=== PATIENT | female | born 1965 | race Caucasian/White ===

== ENCOUNTER → 2017-08-17 08:07 | Outpatient (CLI) | payer SELFPAY ==
[2017-08-17 10:01] LABS: Cholesterol 167 mg/dL (200); Glucose 76 mg/dL (74-106); High Density Lipoprotein 53 mg/dL; Triglycerides 119 mg/dL; Very Low Density Lipoprotein 24 mg/dL (5-40)
== END ==
PROVIDERS: Family Provider Internal Medicine; PCP Internal Medicine; Visit Provider Internal Medicine
DX: Z02.89 Encounter for other administrative examinations (principal)
CPT/HCPCS: 36415; 80061; 82947

== ENCOUNTER → 2017-09-22 06:11 | Outpatient (CLI) | payer SELFPAY ==
[2017-09-22 08:17] LABS: Cholesterol 171 mg/dL (200); Glucose 76 mg/dL (74-106); High Density Lipoprotein 52 mg/dL; Triglycerides 109 mg/dL; Very Low Density Lipoprotein 22 mg/dL (5-40)
== END ==
PROVIDERS: Family Provider Internal Medicine; PCP Internal Medicine; Visit Provider Internal Medicine
DX: Z02.89 Encounter for other administrative examinations (principal)
CPT/HCPCS: 36415; 80061; 82947

== ENCOUNTER → 2018-08-14 10:54 | Outpatient (CLI) | payer BC, SELFPAY ==
--- NOTE | 2018-08-14 11:04 | BD_ITS ---
STUDY: DUAL ENERGY X-RAY ABSORPTIOMETRY / DXA REASON FOR EXAM: Female, 52 years old. The patient's postmenopausal. Loss of height. TECHNIQUE: Bone Mineral Density (BMD) measurements of lumbar spine and bilateral hips were obtained. COMPARISON: None. FINDINGS: Lumbar Spine (L1-L4): g/cm2 (0.913) / T-score (-2.2) / Z-score (-1.8) Findings are suggestive of osteopenia with a moderate fracture risk. Increased thoracic kyphosis. Left Femur Total: g/cm2 (0.808) / T-score (-1.6) / Z-score (-1.1) Left Femoral Neck: g/cm2 (0.836) / T-score (-1.5) / Z-score (-0.6) Right Femur Total: g/cm2 (0.846) / T-score (-1.3) / Z-score (-0.8) Right Femoral Neck: g/cm2 (0.864) / T-score (-1.3) / Z-score (-0.4) BD/Dexa Bone Density Study IMPRESSION: The patient is considered osteopenic as outlined below according to World [employer]avo Organization (WHO) criteria with a moderate fracture risk. Reference Information: The T-score is the number of standard deviations above or below the standard which is normal for young adults at their peak bone mineral density. The World Health Organization (WHO) interprets the T-scores as follows: Above -1 Normal bone density Between -1 and -2.5 Osteopenia Equal to / or below -2.5 Osteoporosis As a practical clinical guideline, osteopenia may be graded as follows: Mild -1 through -1.5 Moderate -1.6 through -2.0 Severe -2.1 through -2.4 The Z-score is the number of standard deviations above or below age-matched controls. A Z-score of less than -1.5 would be considered abnormal. References: 1. NIH Osteoporosis and Related Bone Diseases http://www.osteo.org 2. International Society for Clinical Densitometry http://www.iscd.org 3. National Osteoporosis Foundation http://www.nof.org Electronically Signed: Conner Becker MD at 12:44 EST , Service support ,
== END ==
PROVIDERS: Family Provider Internal Medicine; PCP Internal Medicine; Referring Provider Internal Medicine; Visit Provider Internal Medicine
DX: R74.8 Abnormal levels of other serum enzymes (principal)
CPT/HCPCS: 77080

== ENCOUNTER → 2020-04-22 08:55 | Outpatient (CLI) | payer BC, SELFPAY ==
[2020-04-22 08:24] VITALS: BMI 24.3
[2020-04-22 12:50] LABS: Absolute Lymphocyte Count 1.34 X10^3/uL (0.83-4.51); Absolute Neutrophil Count 2.9 X10^3/uL (2.0-7.7); Basophil# 0.04 X10^3/uL; Basophil% 0.8 % (0-1); Eosinophil# 0.04 X10^3/uL; Eosinophils% 0.8 % (0-5); Hematocrit 42.3 % (37-47); Hemoglobin 13.3 g/dL (12.0-15.0); Lymphocyte # 1.34 X10^3/ul (4.0); Lymphocyte % 27.8 % (19-41); Mean Corp Hgb Conc 31.4 g/dL (32-36); Mean Corpuscular Hgb 27.6 pg (27.0-32.0); Mean Corpuscular Volume 87.8 fL (81-99); Mean Platelet Vol. 11.1 fl (6.2-12.0); Monocyte# 0.48 X10^3/uL; NRBC Flagged by Analyzer 0 % (0-5); Neutrophil # 2.91 X10^3/uL (2.7-7.7); Neutrophil % 60.4 % (47-70); Platelet Count 293 K/mm3 (150-450); RBC Distribution Width CV 13.6 % (11.6-14.6); RBC Distribution Width SD 44.1 fl (35.1-43.9); Red Blood Count 4.82 M/mm3 (4.2-5.4); White Blood Count 4.8 K/mm3 (4.4-11.0)
[2020-04-22 12:53] LABS: ALB/GLOB Ratio 1.1 RATIO (0.9-2.4); AST(SGOT) 23 U/L (15-37); Alanine Aminotransfer ALT/SGPT 23 U/L (13-56); Alkaline Phosphatase 158 U/L (45-117); Anion Gap 5 (5-15); BUN 9 mg/dL (7-18); Calcium,Total 9.2 mg/dL (8.5-10.1); Chloride 107 mmol/L (98-107); Cholesterol 159 mg/dL (200); Creatinine, Serum 0.75 mg/dL (0.55-1.02); EST Glomerular Filtration Rate 86 mL/min (>60); Est Glom Filt Rate - Afr Amer 104 mL/min (>60); Globulin 3.7 g/dL (2.2-4.2); Glucose 73 mg/dL (74-106); High Density Lipoprotein 44 mg/dL; Potassium 4.2 mmol/L (3.5-5.1); Protein, Total 7.7 g/dL (6.4-8.2); Sodium Level 141 mmol/L (136-145); Triglycerides 174 mg/dL; Very Low Density Lipoprotein 35 mg/dL (5-40)
== END ==
PROVIDERS: PCP Internal Medicine; Referring Provider Internal Medicine; Visit Provider Internal Medicine
DX: Z00.00 Encounter for general adult medical examination without abnormal findings (principal)
CPT/HCPCS: 36415; 80053; 80061; 85025

== ENCOUNTER 2020-05-08 07:27 | Day surgery (SDC) | payer BC, SELFPAY ==
[2020-04-22 08:24] VITALS: BMI 24.3
[2020-05-08] VITALS (8 sets, daily range): BP systolic 100–139; BP diastolic 58–81; PULSE 65–75; RESP 16; TEMP 36.2–36.9; O2SAT 98–100; BMI 24.1
[2020-05-08] MEDS: Lactated Ringers 1,000 ML 100 ML IV (08:01)
--- NOTE | 2020-05-08 08:52 | PCM.HP.STD ---
Problem List (1) Screening for intestinal cancer Status: Acute History of Present Illness Date of Admission: 05/08/20 The patient is a 54 year old F presents today for screening colonoscopy. She has not had a previous exam. She denies any symptoms. No change in bowel habits bright red blood per rectum or melena. She otherwise is in good health. Past Medical History Medical History: Medical History (Last Updated 04/22/20 @ 08:19 by Aditi Glez) HISTORY OF CHILD Headache, migraine G43.909 Osteopenia M85.80 Wears glasses Z97.3 Allergies No Known Allergies Allergy (Unverified 05/05/20 12:37) Home Medications: Ambulatory Orders Medication Instructions Recorded calcium carbonate 600 mg calcium 600 mg PO DAILY 04/22/20 (1,500 mg) tablet multivitamin,[id number] 1 tab PO DAILY 04/22/20 Surgical History: Surgical History (Last Updated 04/22/20 @ 08:19 by Aditi Glez) History of varicose vein stripping Z98.890 Smoking Status: Never smoker Tobacco Use: Non-smoker Review of Systems Constitutional: Denies: Fever Cardiovascular: Denies: Chest Pain Respiratory: Denies: Cough, Hemoptysis Gastrointestinal: Denies: Abdominal Pain, Constipation Endocrine: Denies: Change in Body Habitus VTE Information - Inpt Only VTE Present on Admission: No - Physical Exam Vitals/I&O's: Vital Signs Temp Pulse Resp BP Pulse Ox 98.4 F 75 16 131/81 H 99 05/08/20 07:55 05/08/20 07:55 05/08/20 07:55 05/08/20 07:55 05/08/20 07:55 Oxygen Delivery Method Room Air Weight: 154 lb 5.177 oz Body Mass Index (BMI) 24.1 General: Alert, Oriented x3, Cooperative, No apparent distress HEENT: Atraumatic Oral: Moist Mucosa Neck: Supple Lungs: Clear to auscultation, Normal air movement Cardiovascular: Regular rate Abdomen: Bowel Sounds Present, Soft, Non Tender Extremities: No Calf Tenderness Psych/Mental Status: Normal Affect Current Medications Lactated Ringer's () 1,000 mls @ 100 mls/hr IV .Q10H SAMIA Last Admin: 05/08/20 08:01 Dose: 100 mls/hr Documented by: Assessment/Plan All Active Problems (Last Updated 04/22/20 @ 08:19 by Aditi Glez) Screening for intestinal cancer (Acute) The patient presents via open access today. I discussed recommendations for a screening colonoscopy with possible biopsy or polypectomy is indicated. She is aware of the technique, benefit, risk, alternatives. We will proceed as scheduled. Bharat Ram M.D., F.A.C.S. Procedure Criteria Procedure Type: Elective COVID Risk Discussion: The surgeon/proceduralist and patient have discussed in detail the risk of exposure to and/or potential harm posed by the COVID-19 virus with having a surgery/procedure at this time versus the risk of delaying the surgery/procedure. It is not possible to know either the risk of delaying the surgery or procedure or chance of getting an infection with perfect accuracy, but a joint decision was made between the patient and the surgeon/proceduralist to proceed at this time with the scheduled surgery/procedure as indicated on the consent form.
--- NOTE | 2020-05-08 09:29 | OP.CCLET_ITS ---
05/08/2020 Jed Haines MD [address] [place] [address] [place] [address] Re : Colonoscopy procedure for Rosalind Mariano Dear Dr. Haines This procedure was performed on Friday, May 08, 2020. My impressions and recommendations are as follows: Impressions : - Hemorrhoids found on perianal exam. - The entire examined colon is normal. - No specimens collected. Recommendations : - Discharge patient to home. - Resume previous diet. - Continue present medications. - Repeat colonoscopy in 10 years for screening purposes. My findings are described in the full procedure note, which is enclosed. If I can be of further assistance, please feel free to contact me at Doctor phone number(s): Work: . Sincerely, Bharat Ram MD 05/08/2020 9:28:48 AM This report has been signed electronically.
--- NOTE | 2020-05-08 09:29 | OP.COLON_ITS ---
Patient Name: Rosalind Mariano Procedure Date: 05/08/2020 8:58 AM Date of : 1965 Age: 54 Procedure: Colonoscopy Indications: Screening for colorectal malignant neoplasm Providers: Bharat Ram MD Referring MD: Jed Haines MD Medicines: Midazolam 4.5 mg IV, Meperidine 100 mg IV Patient Profile: Last Colonoscopy: none. The patient's first colonoscopy is today. Complications: No immediate complications. Procedure: Pre-Anesthesia Assessment: - Prior to the procedure, a History and Physical was performed, and patient medications and allergies were reviewed. The patient's tolerance of previous anesthesia was also reviewed. The risks and benefits of the procedure and the sedation options and risks were discussed with the patient. All questions were answered, and informed consent was obtained. Prior Anticoagulants: The patient has taken no previous anticoagulant or antiplatelet agents. ASA Grade Assessment: II - A patient with mild systemic disease. After reviewing the risks and benefits, the patient was deemed in satisfactory condition to undergo the procedure. After I obtained informed consent, the scope was passed under direct vision. Throughout the procedure, the patient's blood pressure, pulse, and oxygen saturations were monitored continuously. The pediatric colonoscope was introduced through the anus and advanced to the cecum, identified by appendiceal orifice and ileocecal valve. The colonoscopy was performed without difficulty. The patient tolerated the procedure well. The quality of the bowel preparation was good. The ileocecal valve and the appendiceal orifice were photographed. Moderate Sedation: Moderate (conscious) sedation was personally administered by the endoscopist. The following parameters were monitored: oxygen saturation, heart rate, blood pressure, and response to care. Total physician intraservice time was 15 minutes. Scope In: 9:09:02 AM Scope Withdrawal Time 0 hours 7 minutes 52 seconds Scope Out: 9:23:04 AM Total Procedure Duration Time 0 hours 14 minutes 2 seconds Findings: Hemorrhoids were found on perianal exam. The colon (entire examined portion) appeared normal. Impression: - Hemorrhoids found on perianal exam. - The entire examined colon is normal. - No specimens collected. Recommendation: - Discharge patient to home. - Resume previous diet. - Continue present medications. - Repeat colonoscopy in 10 years for screening purposes. Procedure Code(s): --- Professional --- 62349, Colonoscopy, flexible; diagnostic, including collection of specimen(s) by brushing or washing, when performed (separate procedure) 66477, 59, Moderate sedation services provided by the same physician or other qualified health animal care technician performing the diagnostic or therapeutic service that the sedation supports, requiring the presence of an independent trained observer to assist in the monitoring of the patient's level of consciousness and physiological status; initial 15 minutes of intraservice time, patient age 5 years or older Diagnosis Code(s): --- Professional --- Z12.11, Encounter for screening for malignant neoplasm of colon K64.9, Unspecified hemorrhoids CPT copyright 2017 [employer]. All rights reserved. The codes documented in this report are preliminary and upon ore miner review may be revised to meet current compliance requirements. Bharat Ram MD 05/08/2020 9:28:48 AM This report has been signed electronically. Number of Addenda: 0 Note Initiated On: 05/08/2020 8:58 AM
== END 2020-05-08 10:20 | disposition home or self-care (01) ==
LOC: EN 07:28 → AC 07:29
PROVIDERS: PCP Internal Medicine; Referring Provider Internal Medicine; Visit Provider Surgery
PROC: 0DJD8ZZ Inspection of Lower Intestinal Tract, Via Natural or Artificial Opening Endoscopic (ICD-10-PCS; CPT 45378; principal; 2020-05-08 08:25)
DX: Z12.11 Encounter for screening for malignant neoplasm of colon (principal); K64.9 Unspecified hemorrhoids
CPT/HCPCS: 45378; 87635; 99152; 99153; C9803; J7120; U0003

== ENCOUNTER → 2020-06-02 08:00 | Outpatient (CLI) | payer BC, SELFPAY ==
[2020-04-22 08:24] VITALS: BMI 24.3
[2020-05-08 07:55] VITALS: BMI 24.1
--- NOTE | 2020-06-02 08:01 | BI_ITS ---
MAMMOGRAPHY - BILATERAL SCREENING REASON FOR EXAM: Female, 54 years old. Routine annual screening examination. PERTINENT HISTORY: Non-contributory. TECHNIQUE: Digital bilateral breast douglas (3D mammographic acquisition) in the CC and MLO projections. 2-D mediolateral oblique (MLO) and craniocaudad (CC) views of both breasts were obtained. CAD: Full Field Digital Mammography with Computer Added Detection was performed. COMPARISON: Comparison is made with prior study dated 05/15/2017 and 05/12/2016. FINDINGS: Breast Composition: The breasts are extremely dense, which lowers the sensitivity of mammography. There are no dominant masses or suspicious calcifications. Stable small benign-appearing bilateral axillary lymph nodes. No other significant abnormalities are identified. There has been no significant change since the prior study. BI/SCREEN MAMM (CAD) W/DOUGLAS BILAT IMPRESSION: Stable bilateral screening mammogram. Yearly follow-up mammogram recommended. (A) ASSESSMENT CATEGORY: BIRADS Category 2: Benign. A letter regarding these results will be sent to the patient by the facility within 30 days. Approximately 10% of breast cancers are not detected by mammography. A normal mammogram should not delay biopsy of a clinically suspicious abnormality. [id number] Electronically Signed: Conner Becker, at 8:42 EST , Service support ,
== END ==
PROVIDERS: PCP Internal Medicine; Referring Provider Internal Medicine; Visit Provider Internal Medicine
DX: Z12.31 Encounter for screening mammogram for malignant neoplasm of breast (principal)
CPT/HCPCS: 77063; 77067

== ENCOUNTER 2020-09-18 11:43 | Outpatient (RCR) | payer BC, SELFPAY ==
[2020-05-08 07:55] VITALS: BMI 24.1
[2020-09-18] MEDS: COVID-19 VACC, MRNA(PFIZER)/PF 30 MCG/0.3 ML SYRINGE IM (11:26)
[2020-10-09] MEDS: COVID-19 VACC, MRNA(PFIZER)/PF 30 MCG/0.3 ML SYRINGE IM (11:29)
== END 2020-09-18 23:59 ==
LOC: IMMUN 11:43
PROVIDERS: PCP Internal Medicine; Visit Provider Family Medicine
DX: Z23 Encounter for immunization (principal)
CPT/HCPCS: 0001A; 0002A; 91300

== ENCOUNTER → 2022-03-23 | Outpatient (CLI) | payer BC, SELFPAY ==
[2022-03-23 10:37] LABS: Hematocrit 39.7 % (37-47); Hemoglobin 12.9 g/dL (12.0-15.0); Mean Corp Hgb Conc 32.5 g/dL (32-36); Mean Corpuscular Hgb 28.6 pg (27.0-32.0); Platelet Count 319 K/mm3 (150-450); RBC Distribution Width CV 13.9 % (11.6-14.6); RBC Distribution Width SD 44.4 fl (35.1-43.9); Red Blood Count 4.51 M/mm3 (4.2-5.4); White Blood Count 3.8 K/mm3 (4.4-11.0)
[2022-03-23 10:47] LABS: Vitamin B12 393 pg/mL (211-911); Vitamin D,25 Hydroxy 22.3 ng/mL
[2022-03-23 10:58] LABS: ALB/GLOB Ratio 1.1 RATIO (0.9-2.4); AST(SGOT) 18 U/L (15-37); Alanine Aminotransfer ALT/SGPT 20 U/L (13-56); Albumin, Serum 3.7 g/dL (3.2-5.0); Alkaline Phosphatase 156 U/L (45-117); Anion Gap 7 (5-15); BUN 8 mg/dL (7-18); BUN/Creat Ratio 11.9 RATIO (10-20); Calcium,Total 9.2 mg/dL (8.5-10.1); Chloride 107 mmol/L (98-107); Cholesterol 152 mg/dL (200); Creatinine, Serum 0.68 mg/dL (0.55-1.02); EST Glomerular Filtration Rate 97 mL/min (>60); Est Glom Filt Rate - Afr Amer 117 mL/min (>60); Globulin 3.4 g/dL (2.2-4.2); Glucose 81 mg/dL (74-106); High Density Lipoprotein 41 mg/dL; Iron 55 ug/dL (50-170); Protein, Total 7.1 g/dL (6.4-8.2); Sodium Level 143 mmol/L (136-145); Thyroid Stim Hormone (TSH) 2.32 uIU/mL (0.358-3.74); Triglycerides 116 mg/dL; Very Low Density Lipoprotein 23 mg/dL (5-40)
== END | disposition home or self-care (01) ==
LOC: MFPLAB 08:14
PROVIDERS: PCP Family Medicine; Referring Provider Family Medicine; Visit Provider Family Medicine
DX: M85.80 Other specified disorders of bone density and structure, unspecified site (principal); Z13.1 Encounter for screening for diabetes mellitus; Z78.9 Other specified health status; Z13.220 Encounter for screening for lipoid disorders; Z13.29 Encounter for screening for other suspected endocrine disorder
CPT/HCPCS: 36415; 80053; 80061; 82306; 82607; 83540; 84443; 85027

== ENCOUNTER → 2024-06-28 | Outpatient (CLI) | payer BC, SELFPAY ==
[2024-06-28 12:49] LABS: Anion Gap 3 (5-15); BUN 11 mg/dL (7-18); BUN/Creat Ratio 16.2 RATIO (10-20); Calcium,Total 9.3 mg/dL (8.5-10.1); Chloride 107 mmol/L (98-107); Cholesterol 190 mg/dL (200); Creatinine, Serum 0.68 mg/dL (0.55-1.02); EST Glomerular Filtration Rate 95 mL/min (>60); Est Glom Filt Rate - Afr Amer 116 mL/min (>60); Glucose 80 mg/dL (74-106); High Density Lipoprotein 61 mg/dL; Potassium 3.9 mmol/L (3.5-5.1); Sodium Level 138 mmol/L (136-145); Triglycerides 128 mg/dL; Very Low Density Lipoprotein 26 mg/dL (5-40)
[2024-06-28 12:50] LABS: Vitamin B12 472 pg/mL (211-911); Vitamin D,25 Hydroxy 14.3 ng/mL
== END | disposition home or self-care (01) ==
LOC: MTLAB 09:30
PROVIDERS: PCP Family Medicine; Referring Provider Family Medicine; Visit Provider Family Medicine
DX: M85.80 Other specified disorders of bone density and structure, unspecified site (principal); E55.9 Vitamin D deficiency, unspecified; E53.8 Deficiency of other specified B group vitamins; Z13.1 Encounter for screening for diabetes mellitus; Z13.220 Encounter for screening for lipoid disorders
CPT/HCPCS: 36415; 80048; 80061; 82306; 82607; 84443

== ENCOUNTER → 2024-08-01 | Outpatient (CLI) | payer BC, SELFPAY ==
--- NOTE | 2024-08-01 12:26 | BI_ITS ---
PROCEDURE: SCRN MAMM (CAD)W/DOUGLAS BILAT REASON FOR EXAM: F, Age 58 y/o, routine annual mammogram. TECHNIQUE: Bilateral screening digital breast tomosynthesis with 2D and 3D images. Computer aided detection. COMPARISON: Prior exam(s) dating back to June 02, 2020.. FINDINGS: The breasts are extremely dense which lowers the sensitivity of mammography. No suspicious masses, areas of developing architectural distortion, or suspicious calcifications. Stable examination. BI/SCRN MAMM (CAD)W/DOUGLAS BILAT IMPRESSION: BI-RADS 1: NEGATIVE. RECOMMEND ANNUAL MAMMOGRAPHIC SCREENING. Follow-up code: Routine Follow-up The patient will be notified of the results by letter. Reading Location: [place] [id number]
--- NOTE | 2024-08-01 12:26 | BD_ITS ---
EXAM: CLINICAL INDICATION: Determine bone density. CLINICAL HISTORY: Postmenopausal COMPARISON: 08/14/2018 TECHNIQUE: Bone densitometry of the lumbar spine and hips was performed using the HOLOGIC DEXA scanner. FINDINGS: Bone Density Measurements: SPINE AP Spine (L1-L4): 0.717 g/cm2 T-Score: -3.0 Z-Score: -1.8 WHO Classification: OSTEOPOROSIS There is -10.3 % change since the prior examination of 08/14/2018 LEFT FEMUR Femoral TOTAL (LEFT): 0.681 g/cm2 T-Score: -2.1 Z-Score: -1.4 WHO Classification: OSTEOPENIA Femoral NECK (LEFT): 0.596 g/cm2 T-Score: -2.3 Z-Score: -1.1 WHO Classification: OSTEOPENIA There is -8.9 % change since the prior examination of 08/14/2018 10 year FRAX: Major osteoporotic fracture: 8.8% Hip fracture: 1.3% RIGHT FEMUR Femoral TOTAL (RIGHT): 0.718 g/cm2 T-Score: -1.8 Z-Score: -1.1 WHO Classification: OSTEOPENIA Femoral NECK (RIGHT): 0.616 g/cm2 T-Score: -2.1 Z-Score: -1.0 WHO Classification: OSTEOPENIA There is -8.5 % change since the prior examination of 08/14/2018 10 year FRAX: Major osteoporotic fracture: 8.2% Hip fracture: 1.0% BD/Dexa Bone Density Study IMPRESSION: Osteoporosis World Health Organization criteria for BMD interpretation classify patients as: Normal (T-score at or above -1.0), Osteopenic (T-score between -1.0 and -2.5),or Osteoporotic (T-score at or below -2.5). The presence of vertebral abnormalities such as scoliosis or osteophytes, or ao rtic/ligamentous calcifications can alter readings of the lumbar spine. In such cases, readings of the hips are more reliable. Reading [facility]
== END | disposition home or self-care (01) ==
LOC: OPBD 12:24
PROVIDERS: PCP Family Medicine; Referring Provider Family Medicine; Visit Provider Family Medicine
DX: Z12.31 Encounter for screening mammogram for malignant neoplasm of breast (principal); M85.80 Other specified disorders of bone density and structure, unspecified site; Z78.0 Asymptomatic menopausal state; M81.0 Age-related osteoporosis without current pathological fracture
CPT/HCPCS: 77063; 77067; 77080

== ENCOUNTER → 2024-11-04 | Outpatient (CLI) | payer BC, SELFPAY ==
[2024-11-04 10:30] LABS: Ionized Calcium Order ORDER TUBE
[2024-11-04 11:30] LABS: Anion Gap 10 (5-15); BUN 11 mg/dL (4-19); BUN/Creat Ratio 16.6 RATIO (10-20); Calcium,Total 9.3 mg/dL (7.6-11.0); Carbon Dioxide 24.7 mmol/L (21.0-32.0); Chloride 105 mmol/L (98-108); Creatinine, Serum 0.69 mg/dL (0.70-1.20); EST Glomerular Filtration Rate 102 (>60); Glucose 84 mg/dL (70-99); Magnesium 1.9 mg/dL (1.5-2.2); Phosphorus 3.3 mg/dL (2.7-4.5); Potassium 3.9 mmol/L (3.3-5.1); Sodium Level 140 mmol/L (133-145); Vitamin D,25 Hydroxy 68.6 ng/mL (30-100)
[2024-11-04 11:38] LABS: Ionized Calcium 1.22 mmol/L (1.09-1.30)
[2024-11-04 11:58] LABS: PTHIN 65 pg/mL (11-61)
== END | disposition home or self-care (01) ==
LOC: MTLAB 09:27
PROVIDERS: PCP Family Medicine; Referring Provider Family Medicine; Visit Provider Family Medicine
DX: M81.0 Age-related osteoporosis without current pathological fracture (principal)
CPT/HCPCS: 36415; 80048; 82306; 82330; 83735; 83970; 84100; 84443

== ENCOUNTER → 2024-12-24 | Outpatient (CLI) | payer BC, SELFPAY ==
--- NOTE | 2024-12-24 13:00 | RAD_ITS ---
PROCEDURE: LUMBAR SPINE 2 OR 3 VIEWS 12/24/2024 REASON FOR EXAM: PAIN TECHNIQUE: LUMBAR SPINE 2 OR 3 VIEWS COMPARISON: None. RAD/Lumbar Spine 2 or 3 Views IMPRESSION: Mild bilateral sacroiliac joint degenerative changes are seen. Mild degenerative changes of the lumbar spine are noted, without significant di sc space narrowing noted. Lower lumbar posterior facet hypertrophy is seen. No evidence of spondylolysis or spondylolisthesis. No fracture site is seen. Reading Location: [place] [address]
== END | disposition home or self-care (01) ==
LOC: MTRAD 13:00
PROVIDERS: PCP Family Medicine; Referring Provider Physician Assistant; Visit Provider Physician Assistant
DX: M54.9 Dorsalgia, unspecified (principal)
CPT/HCPCS: 72100

== ENCOUNTER → 2024-12-25 | Outpatient (CLI) | payer BC, SELFPAY ==
[2024-12-30 13:08] LABS: HPV APTIMA, High Risk Negative (Negative)
== END | disposition home or self-care (01) ==
LOC: LABSPEC 16:23
PROVIDERS: PCP Family Medicine; Referring Provider Nurse Practitioner Family; Visit Provider Nurse Practitioner Family
DX: Z12.4 Encounter for screening for malignant neoplasm of cervix (principal); Z78.0 Asymptomatic menopausal state
CPT/HCPCS: 87624; 88175; G0145

== ENCOUNTER → 2025-01-06 | Outpatient (CLI) | payer BC, SELFPAY | END | disposition home or self-care (01) | LOC: MTRAD 08:37 | PROVIDERS: PCP Family Medicine; Referring Provider Nurse Practitioner Family; Visit Provider Nurse Practitioner Family | DX: M25.551 Pain in right hip (principal); M54.41 Lumbago with sciatica, right side | CPT/HCPCS: 73502 ==

== ENCOUNTER → 2025-01-17 | Outpatient (CLI) | payer BC, SELFPAY ==
--- OUTSIDE RECORDS SUMMARY | 2025-01-17 07:18 | XMS RPT_ITS | CCD ---
Author Organization [facility] Care Team Providers Care Water Valve Mechanic Name Role Phone Sepideh Stover Unavailable Fast, Taylor A Unavailable Shoshana Acevedo Unavailable Unavailable Unavailable Unavailable Sepideh Stover Unavailable Juliette Martell Unavailable Unavailable Fast, Taylor A Unavailable Unavailable Unavailable Shanell Santamaria Unavailable Unavailable Alex Scott Unavailable Unavailable Sepideh Stover Attending Unavailable Sepideh Stover Referring Unavailable Sepideh Stover Consulting Unavailable Loyda FORDE, Dr. Greene Primary Care Provider Loyda FORDE, Dr. Greene Attending Provider Dr. Jc Scales MD Referring Provider [phone] Dr. Jc Scales MD Primary Care Provider Dr. Jc Scales MD Attending Provider [phone] Dr. cJ Scales MD Referring Provider Earl Deng Attending Provider Earl Deng Referring Provider [phone] Jyoti Jenkins Attending Provider Jaimee JULIOCJyoti Referring Provider Vonda GED INSTRUCTOR-CJenn Attending Provider [phone] Vonda GED INSTRUCTOR-CJenn Referring Provider Jc Scales Referring Unavailable Jyoti Hermosillo Attending Unavailable Ranney, Christopher Primary Care Unavailable [facility], Alfieer Referring [facility]available [facility] Unavailable Earl Deng Attending Unavailable Loyda Jc Primary Care Unavailable Earl Deng Referring Unavailable Earl Deng Attending Unavailable Loyda, Jc Referring Unavailable Jc Scales Attending Unavailable [facility], [facility] Unavailable [facility], [facility] Unavailable Vonda GED INSTRUCTOR, Jenn Attending Unavailable Vonda GED INSTRUCTOR, Jenn Referring Unavailable Jc Scales Referring Unavailable Jc Scales Attending Unavailable [facility] Primary [facility] Unavailable Loyda, Jc Referring Unavailable Jc Scales Attending Unavailable [facility], [facility] Unavailable Vonda GED INSTRUCTOR, Jenn Attending Unavailable Loyda, [facility] [place] Primary Care Unavailable Vonda GED INSTRUCTOR, Jenn Referring Unavailable Jyoti Hermosillo Referring Unavailable Jyoti Hermosillo Attending Unavailable [facility] Primary Care Unavailable Medications Current Medications Medication Drug Class(es) Dates Sig (Normalized) Sig (Original) calcium carbonate 1500 mg oral tablet (6 sources) Start: 04-22-2020 take 1 tablet by mouth once daily Calcium Carbonate (Calcium 600) 600 mg calcium (1,500 mg) tablet Active 600 mg PO DAILY April 22, 2020 12:00am cholecalciferol 0.01 mg oral capsule (5 sources) Vitamin D Start: 12-24-2024 take 1 capsule by mouth once Cholecalciferol (Vitamin D3) (Vitamin D3) 10 mcg (400 unit) capsule Active 10 ug PO December 24, 2024 12:00am Vitamin D deficiency Start: 12-24-2024 Cholecalcifero l (Vitamin D3) (Vitamin D3) 10 mcg (400 unit) capsule Active 10 ug PO December 24, 2024 12:00am meloxicam 15 mg oral tablet (5 sources) Nonsteroidal Anti-inflammatory Drug Start: 12-24-2024 take 1 tablet by mouth once daily Meloxicam 15 mg tablet Active 15 mg PO daily 14 0 December 24, 2024 12:00am Completed/Discontinued Medications Medication Drug Class(es) Dates Sig (Normalized) Sig (Original) amoxicillin 875 mg / clavulanate 125 mg oral tablet (6 sources) Penicillin-class Antibacterial Start: 05-12-2017 End: 06-04-2018 take 1 tablet by mouth twice daily Amoxicillin-Pot Clavulanate 875-125 MG Oral Tablet 1 (one) Tablet bid for 0 days Quantity: 28 {Tablet} Refills: 0 Ordered: 04-Jun-2018 Jayleen Barber LPN Start : 12-May-2017 End : 04-Jun-2018 Inactive biotin 1 mg oral tablet (6 sources) Start: 04-22-2015 End: 04-15-2016 take 1 tablet by mouth once daily Biotin 1000 MCG Oral Tablet 1 (one) Tablet qd for 30 days Refills: 0 Ordered: 15-Apr-2016 Juliette Martell JERSON Start : 22-Apr-2015 End : 15-Apr-2016 Inactive Multi-Vitamins (1 source) Start: 04-22-2015 take 1 tablet by mouth once daily MULTI-VITAMINS (Oral Tablet) 1 (one) Tablet qd for 30 days Refills: 0 Ordered: 22-Apr-2015 Sepideh Stover DO, DO, Kathleen Start : 22-Apr-2015 Active MULTI-VITAMINS (Oral Tablet) (5 sources) Start: 04-22-2015 take 1 tablet by mouth once daily MULTI-VITAMINS (Oral Tablet) 1 (one) Tablet qd for 30 days Refills: 0 Ordered: 22-Apr-2015 Sepideh Stover DO, DO, Kathleen Start : 22-Apr-2015 Active Multivitamin,Tx-Ir on-Minerals (Complete Multivitamin) tablet (6 sources) Start: 04-22-2020 End: 12-25-2024 Multivitamin,Tx-Ir on-Minerals (Complete Multivitamin) tablet Discontinued 1 {tbl} PO DAILY April 22, 2020 12:00am December 25, 2024 1:32pm Start: 04-22-2020 Multivitamin,T a-Wwnd-Xlapizmr (Complete Multivitamin) tablet Active 1 {tbl} PO DAILY April 22, 2020 12:00am rizatriptan 10 mg oral tablet (6 sources) Serotonin-1b and Serotonin-1d Receptor Agonist Start: 04-15-2016 End: 04-18-2016 Maxalt 10 MG Oral Tablet 1 (one) Tablet x1 at onset of sylvester and may repeat in 2hr if needed for 0 days Quantity: 14 {Tablet} Refills: 3 Ordered: 18-Apr-2016 Jayleen Barber LPN Start : 15-Apr-2016 End : 18-Apr-2016 Inactive SUMAtriptan 50 mg oral tablet (6 sources) Serotonin-1b and Serotonin-1d Receptor Agonist Start: 06-29-2018 take 1 tablet by mouth every hour SUMAtriptan Succinate 50 MG Oral Tablet 1 (one) Tablet at onset of headache and can repeat hours later if needed for 30 days Quantity: 9 {Tablet} Refills: 5 Ordered: 29-Jun-2018 Sepideh Stover DO, DO, Kathleen Start : 29-Jun-2018 Active Start: 06-28-2017 take 1 tablet by mert th every hour SUMAtriptan Succinate 50 MG Oral Tablet 1 (one) Tablet at onset of headache and can repeat hours later if needed for 0 days Quantity: 9 {Tablet} Refills: 5 Ordered: 28-Jun-2017 Sepideh Stover DO, DO, Kathleen Start : 28-Jun-2017 Active Super B Complex/C (1 source) Start: 04-22-2015 End: 04-15-2016 take 1 capsule by mouth once daily SUPER B COMPLEX/C (Oral Capsule) 1 (one) Capsule qd for 30 days Refills: 0 Ordered: 15-Apr-2016 Sepideh Stover DO, DO, Kathleen Start : 22-Apr-2015 End : 15-Apr-2016 Discontinued Comments: This order discontinued per [facility]. Comment on above: This order discontinued per [facility]. SUPER B COMPLEX/C (Oral Capsule) (5 sources) Start: 04-22-2015 End: 04-15-2016 take 1 capsule by mouth once daily SUPER B COMPLEX/C (Oral Capsule) 1 (one) Capsule qd for 30 days Refills: 0 Ordered: 15-Apr-2016 Sepideh Stover DO, DO, Kathleen Start : 22-Apr-2015 End : 15-Apr-2016 Discontinued Comments: This order discontinued per [facility]. Comment on above: This order discontinued per [facility]. vitamin b 12 0.1 mg oral tablet (6 sources) Vitamin B12 Start: 04-22-2015 End: 04-15-2016 take 1 tablet by mouth once daily Vitamin B12 100 MCG Oral Tablet 1 (one) Tablet qd for 30 days Refills: 0 Ordered: 15-Apr-2016 Juliette Martell LPN Start : 22-Apr-2015 End : 15-Apr-2016 Inactive Zinc (6 sources) Start: 04-22-2015 End: 04-15-2016 take 1 tablet by mouth once daily Zinc 50 MG Oral Tablet 1 (one) Tablet qd for 30 days Refills: 0 Ordered: 15-Apr-2016 Juliette Martell JERSON Start : 22-Apr-2015 End : 15-Apr-2016 Inactive Problems Active Problems Problem Classification Problem Date Documented Da te Episodic/Chronic Headache; including migraine (6 sources) Migraine with aura; Translations: [Migraine with aura and with status migrainosus, not intractable] 05-12-2017 Chronic Comment on above: ever since went to p lant based diet migraines is much better - very infrequent now unless eat sugar or somehting Malaise and fatigue (20 sources) Fatigue; Translations: [Fatigue] Resolved: 08-06-2015 09-10-2015 Episodic Osteoporosis (2 sources) Age-related osteoporosis without current pathological fracture; Translations: [Osteopenia after menopause] Onset: 01-10-2025 08-29-2018 Chronic Other gastrointestinal disorders (8 sources) Diarrhea; Translations: [Diarrhea] 08-06-2018 Episodic Other liver diseases (3 sources) Alkaline phosphatase raised; Translations: [Elevated alkaline phosphatase level] 08-07-2018 Episodic Other lower respiratory disease (10 sources) Cough; Translations: [Cough] 07-31-2018 Episodic Other non-traumatic joint disorders (1 source) Pain in right hip; Translations: [Pain in right hip] Onset: 01-10-2025 Episodic Other and delivery including normal (6 sources) History of past delivery; Translations: [Vaginal Delivery] 05-12-2017 Episodic Comment on above: / Other screening for suspected conditions (not mental disorders or infectious disease) (8 sources) Patient encounter status; Translations: [Encounter for screening for malignant neoplasm of intestinal tract, unspecified] Onset: 08-21-2024 05-08-2020 Episodic Other skin disorders (20 sources) Night sweats; Translations: [Night sweats] Resolved: 09-10-2015 11-12-2015 Episodic Comment on above: improved with adrena l support and moving to plant based diet again - and getting enough protein she thinks - eats meats occassionally Other upper respiratory infections (6 sources) Acute maxillary sinusitis; Translations: [Acute maxillary sinusitis, recurrence not specified] 05-14-2017 Episodic Residual codes; unclassified (7 sources) Body mass index (BMI) 23.0-23.9, adult; Translations: [Body mass index (BMI) 24.0-24.9, adult] 07-31-2018 Episodic Spondylosis; intervertebral disc disorders; other back problems (10 sources) Low back pain; Translations: [Low back pain] Onset: 12-29-2024 12-24-2024 Episodic Sprains and strains (9 sources) Strain of muscle and/or tendon of thigh; Translations: [Strain of unspecified quadriceps muscle, fascia and tendon, initial encounter] Onset: 12-25-2024 12-24-2024 Episodic Unclassified (1 source) Low back pain, unspecified; Translations: [Low back pain, unspecified] Onset: 12-25-2024 Past or Other Problems Problem Classification Problem Date Documented Da te Episodic/Chronic Headache; including migraine (6 sources) Headache; Translations: [Headache on top of head] Resolved: 06-17-2015 09-10-2015 Episodic Headache; including migraine (20 sources) Headache; including migraine Other bone disease and musculoskeletal deformities (1 source) Other specified disorders of bone density and structure, unspecified site; Translations: [Other specified disorders of bone density and structure, unspecified site] Onset: 07-26-2024 Episodic Other skin disorders (6 sources) Nonscarring hair loss, unspecified; Translations: [Hair loss] Resolved: 09-10-2015 09-10-2015 Episodic Comment on above: improved and thicker Unclassified (12 sources) Migraine with aura and with status migrainosus, not intractable Unclassified (19 sources) Non-smoker; Translations: [Non-smoker] 05-12-2017 Unclassified (6 sources) Pregnancies (); Translations: [Pregnancies ()] 05-12-2017 Comment on above: 3. Unclassified (12 sources) Unspecified Diagnosis 05-12-2017 Unclassified (20 sources) Hair loss Unclassified (20 sources) Unclassified (6 sources) Acute maxillary sinusitis, recurrence not specified Unclassified (5 sources) BMI 23.0-23.9, adult Unclassified (3 sources) Elevated alkaline phosphatase level Unclassified (2 sources) BMI 24.0-24.9, adult Unclassified (1 source) Osteopenia after menopause Unclassified (6 sources) HISTORY OF CHILD 01-31-2022 Results Test Name Value Interpretation Reference Range Facility HIP, UNI W/ Pelvis 2-3 Views on 01-06-2025 HIP, UNI W/ Pelvis 2-3 Views [facility] [address] [place] [address] HIP, UNI W/ Pelvis 2-3 Views MR#: [id number] Acct: [id number] Name: BENJAMÍN LEUNG Rep #: [id number] : 1965 F 59 From: Danyel Apple PCP: Dr. Jc Scales MD Status: REG CLI Study: HIP, UNI W/ Pelvis 2-3 Views Date of Exam: 01/24 Exam# [id number] Ordering Dr: Jenn Ferrari NP GED INSTRUCTOR-C PROCEDURE: HIP, UNI W/ PELVIS 2-3 VIEWS 01/06/2025 REASON FOR EXAM: PAIN TECHNIQUE: Four view right hip to include the AP pelvis COMPARISON: Lumbar spine series of 12/24/2024. RAD/HIP, UNI W/ Pelvis 2-3 Views IMPRESSION: Sacroiliac joints appear within the normal range for age. Minimal degenerative changes are seen of the hip joints, without joint narrowing appreciated. No evidence of femoral head osteonecrosis. No acute fracture or dislocation is seen. Reading Location: [address] CC: GED INSTRUCTOR-C Jenn Ferrari; Dr. Jc Scales MD Web Applications Administrator: Signed Normal [facility] PAP IG HPV APTIMA 16/18,45on 12-30-2024 ADEQ Comment Normal . [facility] Comment on above: Order Comment: Order Date: 06/24/24 Order Info: [id number] - BMP Order Info: [id number] - LIPID Order Info: [id number] - TSH Result Comment: Sati sfactory for evaluation. Endocervical and/or squamous metaplastic cells (endocervical component) are present. Performed By: #### L 500.2500, L500.4100, L506.1000, L501.9520, L503.0105 #### [facility] [address] [place], [address] COMM . Normal . [facility] Comment on above: Order Comment: Order Date: 06/24/24 Order Info: [id number] - BMP Order Info: [id number] - LIPID Order Info: 3 - TSH Performed By: #### L 500.2500, L500.4100, L506.1000, L501.9520, L503.0105 #### [facility] [address] [place], [address] COMMENT Comment Normal . [facility] Comment on above: Order Comment: Order Date: 06/24/24 Order Info: [id number] - BMP Order Info: - LIPID Order Info: 3 - TSH Result Comment: This liquid based ThinPrep(R) pap test was screened with the use of an image guided system. Performed By: #### L 500.2500, L500.4100, L506.1000, L501.9520, L503.0105 #### [facility] [address] [place], [address] DIAG Comment Normal . [facility] Comment on above: Order Comment: Order Date: 06/24/24 Order Info: [id number] - BMP Order Info: - LIPID Order Info: 3 - TSH Result Comment: NEGA TIVE FOR INTRAEPITHELIAL LESION OR MALIGNANCY. CELLULAR CHANGES ASSOCIATED WITH ATROPHY ARE PRESENT. Performed By: #### L 500.2500, L500.4100, L506.1000, L501.9520, L503.0105 #### [facility] [address] [place], [address] HPV APTIMA, HR Negative Normal Negative [facility] Comment on above: Order Comment: Order Date: 06/24/24 Order Info: [id number] - BMP Order Info: - LIPID Order Info: 3 - TSH Result Comment: This nucleic acid amplification test detects fourteen high- risk HPV types (16,18,31,33,35,39,45,51,52,56,58,59,66,68) without differentiation. Performed By: #### L 500.2500, L500.4100, L506.1000, L501.9520, L503.0105 #### [facility] [address] [place], [address] HPV Maricel Rfx Comment Normal . [facility] Comment on above: Order Comment: Order Date: 06/24/24 Order Info: 06- - BMP Order Info: [id number] - LIPID Order Info: [id number] - TSH Result Comment: Crit eria not met, HPV Genotype not performed. Performed at: [facility] - [facility] [id number] [employer] Executive Director: Sammie Sanders MD, Phone: [phone] Performed at: =G - [facility] [address] [id number] [employer] Executive Director: Sammie Sanders MD, Phone: [phone] Performed By: #### L 500.2500, L500.4100, L506.1000, L501.9520, L503.0105 #### [facility] [address] [place], [place], [id number] PAPSMR Comment Normal . [facility] Comment on above: Order Comment: Order Date: 06/24/24 Order Info: [id number] - BMP Order Info: [id number] - LIPID Order Info: 3 - TSH Result Comment: The Pap smear is a screening test designed to aid in the detection of premalignant and malignant conditions of the uterine cervix. It is not a diagnostic procedure and should not be used as the sole means of detecting cervical cancer. Both false-positive and false-negative reports do occur. Performed By: #### L 500.2500, L500.4100, L506.1000, L501.9520, L503.0105 #### [facility] [address] [place], [address] PERFORM Comment Normal . [facility] Comment on above: Order Comment: Order Date: 06/24/24 Order Info: 06-1 - BMP Order Info: [id number] - LIPID Order Info: [id number] - TSH Result Comment: Renetta Palma, Dinkey Engine Firer (ASCP) Performed By: #### L 500.2500, L500.4100, L506.1000, L501.9520, L503.0105 #### [facility] [address] [place], [place], [id number] Cervical or vaginal specimen microscopic examination by liquid based cytology (reportOrdered By: Jyoti Hermosillo on 12-25-2024 Cytology report Cyto stain.thin prep Doc (Cvx/Vag) Comment . [facility] Comment on above: Criteria not met, HP V Genotype not performed.Performed at: [address] [id number] Director: Sammie Sanders MD, Phone: [phone] at: =[address] [id number] Director: Sammie Sanders MD, Phone: [phone] Cervical or vagninal specime n microscopic examination by cytology stain (reported asOrdered By: Jyoti Hermosillo on 12-25-2024 Cytology report Cyto stain Doc (Cvx/Vag) Comment . [facility] Comment on above: The Pap smear is a s creening test designed to aid in thedetection of premalignant and malignant conditions of theuterine cervix. It is not a diagnostic procedure andshould not be used as the sole means of detecting cervicalcancer. Both false-positive and false-negative reports dooccur. Detection in cervical specim en of any of human papilloma virus (HPV) 16, 18, 31, 33,Ordered By: Jyoti Hermosillo on 12-25-2024 HPV 16+18+31+33+35+39+45+51+ 52+56+58+59+66+68 DNA Probe+sig amp Ql (Cvx) Negative Negative [facility] Comment on above: This nucleic acid am plification test detects fourteen high-risk HPV types (16,18,31,33,35,39,45,51,52,56,58,59,66,68)without differentiation. Laboratory - CytologyOrdered By: Jyoti Hermosillo on 12-25-2024 Dinkey Engine Firer Cyto stain Nom (Cvx/Vag) [ID] Comment . [facility] Comment on above: Renetta Palma, Cyto logist (ASCP) Laboratory - Miscellaneous t estsOrdered By: Jyoti Hermosillo on 12-25-2024 Service comment (Unsp spec) [Interp] . . [facility] No Panel InformationOrdered By: Jyoti Hermosillo on 12-25-2024 Pap Smear Specimen Adequacy Comment . [facility] Comment on above: Satisfactory for joceline luation. Endocervical and/or squamous metaplasticcells (endocervical component) are present. 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) Rock Cutter Required: No Is patient in pain?: Yes (right quad pain) Allergies No Known Allergies Allergy (Verified 12/25/24 13:31) Medications ???Medication ???Instructions ???Recorded ???Confirmed ???Type calcium carbonate (Calcium 600) 600 mg PO DAILY 04/22/20 12/25/24 History cholecalciferol (vitamin D3) 10 10 mcg PO Vitamin D deficiency 12/25/24 History mcg (400 unit) capsule (Vitamin D3) meloxicam 15 mg tablet 15 mg PO QDAY #14 tabs 12/24/24 Rx Is last menstrual period known: No Post menopausal: Yes Patient : No : No [facility] Medical History Low back pain Quadriceps strain Osteoporosis HISTORY OF CHILD Wears glasses Osteopenia Headache, migraine Surgical History (Updated 12/25/24 @ 13:33 by Kelly Kapadia) H/O tubal ligation History of varicose vein stripping Family History Other Adopted Social History (Updated 12/25/24 @ 13:35 by Kelly Kapadia) adopted: Yes (family medical history unknown) household members: spouse number of children: 3 current occupational status: unemployed Smoking Status: Never smoker alcohol intake: current alcohol intake frequency: a few times a month substance use type: does not use diet: vegan what type of physical activity do you participate in: walking frequency: daily seatbelt use: always do you feel safe at home: Yes additional social history: Jak History 3 Elective abortions Hx Para 3 Spontaneous abortions Hx # Term Pregnancies 3 Ectopic pregnancies Hx # Pregnancies Multiple births # of living children 3 Past Pregnancies Del. Date Name GA/Weeks Outcome Route Bth Weight Gen Labor Lgth Anesthesia Del Locatn Provider FOB Unknown 1995 Neo Unknown 1998 [place] Unknown 2000 [place] HPI Encounter for routine gynecological examination Details: BENJAMÍN LEUNG is a 59 year old who presents for annual exam. She is here to establish. Has not had a menses in more than 5 years with no vaginal bleeding at all since stopping her menses. She otherwise reports no issues or concerns. Last PAP: 2016, negative. History of abnormal PAP: 2014 ASCUS, HPV negative Last mammogram: 2024; normal. History of abnormal mammogram: 2024 Colon cancer screening: at 54--recommended 10 yrs Other preventative health care screenings: PCP Lizandro Scales 2024 Female Reproductive History Questions: metorrhagia: No, sexually active: Yes, dyspareunia: No and PCB: No Menopausal Symptoms: No hot flashes, No night sweats, No weight change, No mood changes, No difficulty concentrating, No sleep problems and No change in libido ROS Const Constitutional: Denies body ache, chills, fatigue, fever(s), headache(s) or night sweats Eyes Eyes: Denies change in vision ENT ENT: Denies dizziness Cardio Card: Denies chest pain at rest or palpitations Resp Resp: Denies cough or dyspnea on exertion GI GI: Denies abdominal pain, constipation or nausea : Denies difficulty voiding, dysuria, hot flashes, pelvic pain, vaginal discharge, vaginal dryness, vaginal odor or vaginal pruritus Skin Skin/Breast: Denies alopecia or rash Neuro Neuro: Denies dizziness Psych Psych: Denies anxiety, change in libido, depression or difficulty concentrating Endo Endo: Denies cold intolerance, excessive sweating or heat intolerance Exam Const General: cooperative, healthy appearing, comfortable, no acute distress, well groomed and well hydrated Nutritional Appearance: well nourished Orientation: alert, awake and oriented x3 HENMT Head: normal to inspection and normocephalic Ears: hearing grossly normal bilaterally and external ears normal Nose: external nose normal Face and sinus: normal facial exam Eyes General: appearance normal, both eyes and all related structures Neck Neck: normal visual inspection, full ROM and no lymphadenopathy Thyroid: thyroid normal Chest Chest palpation inspection: normal inspection of the chest Breast inspection: normal inspection of the breasts and normal inspection of the axillae Breast palpation: normal palpation of the breasts, normal palpat (more content not included)... Normal [facility] Lumbar Spine 2 or 3 Viewson 12-24-2024 Lumbar Spine 2 or 3 Views [facility] [address] [place] [id number] Lumbar Spine 2 or 3 Views MR#: [id number] Acct: [id number] Name: BENJAMÍN LEUNG Rep #: [id number] : 1965 F 59 From: Danyel Apple PCP: Dr. Jc Scales MD Status: REG CLI Study: Lumbar Spine 2 or 3 Views Date of Exam: Exam# [id number] Ordering Dr: Earl Burton PA PROCEDURE: LUMBAR SPINE 2 OR 3 VIEWS 12/24/2024 REASON FOR EXAM: PAIN TECHNIQUE: LUMBAR SPINE 2 OR 3 VIEWS COMPARISON: None. RAD/Lumbar Spine 2 or 3 Views IMPRESSION: Mild bilateral sacroiliac joint degenerative changes are seen. Mild degenerative changes of the lumbar spine are noted, without significant disc space narrowing noted. Lower lumbar posterior facet hypertrophy is seen. No evidence of spondylolysis or spondylolisthesis. No fracture site is seen. Reading Location: [place] [id number] CC: Dr. Jc Scales MD; ZOYA Centeno Web Applications Administrator: Signed Normal [facility] Urgent Care Visit Reporton 0 12-24-2024 Urgent Care Visit Report [facility] [address], [address] [place] [address] OFFICE VISIT Date of Service: 12/24/24 MR#: [id number] Acct: [id number] Name: BENJAMÍN LEUNG Rep #: [id number] : 1965 Provider: ZOYA Centeno Age/Sex: 59/F Location: [facility] Status: Signed Intake Vital Signs 12/24/24 13:25 Height 5 ft 7 in Weight: 158 lb 8 oz BMI 24.8 BP 110/78 Blood Pressure Location Lt radial Position Sitting Respiration 16 Pulse 80 Pulse Source NIBP Temp 98.2 F Temp Source Oral Pulse Oximetry (%) 97 Intake Visit Reasons: R LEG/BACK PAIN/UNK INJ/WANTS XRAY Chief Complaint: Right Back Pain into Leg Rock Cutter Required: No Is patient in pain?: Yes Pain scale (1-10): 10 Allergies No Known Allergies Allergy (Verified 12/24/24 12:57) Medications ???Medication ???Instructions ???Recorded ???Confirmed ???Type calcium carbonate (Calcium 600) 600 mg PO DAILY 04/22/20 12/24/24 History multivitamin,tx-iron- minerals 1 tab PO DAILY 04/22/20 12/24/24 H istory (Complete Multivitamin tablet) cholecalciferol (vitamin D3) 10 10 mcg PO Vitamin D deficiency 12/24/24 History mcg (400 unit) capsule (Vitamin D3) meloxicam 15 mg tablet 15 mg PO QDAY #14 tabs 12/24/24 Rx Is last menstrual period known: No Post menopausal: No Patient : No Have you fallen in the past year?: No Nurse's Note: Complaint of back pain for 2 weeks, which has now traveled into right leg. Complaint of pain and numbness in leg. Patient has tried PT for about a week. [facility] Medical History (Updated 12/24/24 @ 14:39 by Earl KENNY, PA) Low back pain Quadriceps strain Osteoporosis HISTORY OF CHILD Wears glasses Osteopenia Headache, migraine Surgical History (Updated 05/08/20 @ 09:[address] Bharat Ram MD) History of varicose vein stripping Family History (Updated 04/22/20 @ 08:23 by Aditi Glez) Other Adopted Social History (Updated 09/24/24 @ 13:13 by Nati Cameron) adopted: Yes (family medical history unknown) Smoking Status: Never smoker alcohol intake: current alcohol intake frequency: a few times a month substance use type: does not use what type of physical activity do you participate in: walking frequency: daily HPI HPI Chief Complaint: Right Back Pain into Leg Details: BENJAMÍN LEUNG, is a 59 F who presents to the office today for initial evaluation at the [facility] for approximately 1 month history of persistent left proximal quadriceps/hip discomfort, states she has been attending physical therapy and taking 1-2 Advil per day for the last couple of weeks without improvement in his symptoms. She notes her physical therapist recommended she have a medical evaluation and consideration of a corticosteroid prescription to assist with current symptoms as she has made essentially no progress with therapy so far. [facility] [place]. Patient cannot isolate any 1 particular incident that would have exacerbated the symptoms as described above. No cauda complaints upon questioning. No other associated symptoms and no other alleviating/aggravati ng factors. ROS Const Constitutional: No other (As above) Exam Const General: cooperative, healthy appearing and no acute distress Nutritional Appearance: average body habitus Orientation: alert and awake Resp Effort Inspection: normal respiratory effort and able to speak in complete sentences Cardio Rate: regular rate Pulses: radial pulses present GI Inspection: normal to inspection Palpation: soft Musc Thoracic/Lumbar Spine: thoracic and lumbar spine normal to inspection, thoraco-lumbar ROM normal, straight leg raise negative bilaterally, paraspinal tenderness, no thoracic spinal tenderness and no lumbar spinal tenderness Other: Unguarded FAROM right hip with proximal quadricep palpable tenderness upon hip flexion to resistance Skin General: no rashes or lesions noted Neuro General: patient alert, patient awake and gait normal Cognition: normal cognition Speech: speech normal Gait: normal gait Motor: muscle tone normal throughout Sensory Exam: no sensory deficits noted Extrem General: normal to inspection Psych Appearance: grossly normal Mental Status: mental status grossly normal Mood: congruent mood Affect: normal affect Speech and Movement: speech and movement normal Attitude: cooperative Coding Level of Care Code Off vis,new,level 4 Diagnoses Quadriceps strain S76.119A Low back pain M54.50 Assessment and Plan Assessment and Plan (1) Quadriceps strain: Status: Acute (2) Low back pain: Status: Acute Plan: Today's lumbar radiographs reveal no acute pathology per my review, pending radiologist Tatian time patient discharge. Meloxicam as prescr (more content not included)... Normal [facility] Anion gap in Serum or Plasma Ordered By: Jc Scales on 11-04-2024 Anion gap [Moles/Vol] 10 mmol/L 11-14 [facility] BUN/creatinine ratioOrdered By: Jc Scales on 11-04-2024 Urea nitrogen/Creatinine [Mass ratio] 16.6 mg/mg 04-21 [facility] Basic Metabolic Profile (BMP )on 11-04-2024 BUN/CRE 16.6 RATIO Normal 04-21 [facility] Comment on above: Order Comment: Order Date: 06/24/24 Order Info: [id number] - BMP Order Info: [id number] - LIPID Order Info: [id number] - TSH Performed By: #### L 500.2500, L500.4100, L506.1000, L501.9520, L503.0105 #### [facility] [address] [place], [place], [address] Calcium [Mass/Vol] 9.3 mg/dL Normal 7.6-11.0 [facility] Comment on above: Order Comment: Order Date: 06/24/24 Order Info: [id number] - BMP Order Info: [id number] - LIPID Order Info: [id number] - TSH Performed By: #### L 500.2500, L500.4100, L506.1000, L501.9520, L503.0105 #### [facility] [address] [place], [place], [address] Chloride [Moles/Vol] 105 mmol/L Normal 98-108 [facility] Comment on above: Order Comment: Order Date: 06/24/24 Order Info: 666-07 - BMP Order Info: - LIPID Order Info: [id number] - TSH Performed By: #### L 500.2500, L500.4100, L506.1000, L501.9520, L503.0105 #### [facility] [address] [place], [address] CO2 [Moles/Vol] 24.7 mmol/L Normal 21.0-32.0 [facility] Comment on above: Order Comment: Order Date: 06/24/24 Order Info: 666-07 - BMP Order Info: - LIPID Order Info: [id number] - TSH Performed By: #### L 500.2500, L500.4100, L506.1000, L501.9520, L503.0105 #### [facility] [address] [place], [address] Creatinine [Mass/Vol] 0.69 mg/dL Low 0.70-1.20 [facility] Comment on above: Order Comment: Order Date: 06/24/24 Order Info: 666-07 - BMP Order Info: - LIPID Order Info: [id number] - TSH Performed By: #### L 500.2500, L500.4100, L506.1000, L501.9520, L503.0105 #### [facility] [address] [place], [address] GAP 10 Normal 5-15 [facility] Comment on above: Order Comment: Order Date: 06/24/24 Order Info: 666-07 - BMP Order Info: - LIPID Order Info: [id number] - TSH Performed By: #### L 500.2500, L500.4100, L506.1000, L501.9520, L503.0105 #### [facility] [address] [place], [address] GFR/1.73 sq M.predicted among non-blacks MDRD (S/P/Bld) [Vol rate/Area] 102 mL/min/{1.73_m2} Normal >60 [facility] Comment on above: Order Comment: Order Date: 06/24/24 Order Info: 666-07 - BMP Order Info: - LIPID Order Info: [id number] - TSH Result Comment: mL/m in/1.73m2 CKD-EPI Creatinine Equation (2020) Performed By: #### L 500.2500, L500.4100, L506.1000, L501.9520, L503.0105 #### [facility] [address] [place], [address] Glucose [Mass/Vol] 84 mg/dL Normal 70-99 [facility] Comment on above: Order Comment: Order Date: 06/24/24 Order Info: 666-07 - BMP Order Info: - LIPID Order Info: [id number] - TSH Performed By: #### L 500.2500, L500.4100, L506.1000, L501.9520, L503.0105 #### [facility] [address] [place], [address] Potassium [Moles/Vol] 3.9 mmol/L Normal 3.3-5.1 [facility] Comment on above: Order Comment: Order Date: 06/24/24 Order Info: 666-07 - BMP Order Info: - LIPID Order Info: [id number] - TSH Performed By: #### L 500.2500, L500.4100, L506.1000, L501.9520, L503.0105 #### [facility] [address] [place], [address] Sodium [Moles/Vol] 140 mmol/L Normal 133-145 [facility] Comment on above: Order Comment: Order Date: 06/24/24 Order Info: 666-07 - BMP Order Info: - LIPID Order Info: [id number] - TSH Performed By: #### L 500.2500, L500.4100, L506.1000, L501.9520, L503.0105 #### [facility] [address] [place], [address] Urea nitrogen [Mass/Vol] 11 mg/dL Normal 4-19 [facility] Comment on above: Order Comment: Order Date: 06/24/24 Order Info: [id number] - BMP Order Info: [id number] - LIPID Order Info: [id number] - TSH Performed By: #### L 500.2500, L500.4100, L506.1000, L501.9520, L503.0105 #### [facility] [address] [place], [place], [id number] Carbon dioxide, total [Moles /volume] in Central venous bloodOrdered By: Jc Scales on 11-04-2024 CO2 [Moles/Vol] 24.7 mmol/L 21.0-32.0 [facility] Chloride assayOrdered By: Lupis Scales on 11-04-2024 Chloride [Moles/Vol] 105 mmol/L 98-108 [facility] Glomerular filtration rate ( GFR) estimation/1.73 sq m using serum, plasma, or whole bOrdered By: Jc Scales on 11-04-2024 GFR/1.73 sq M.predicted among non-blacks MDRD (S/P/Bld) [Vol rate/Area] 102 mL/min/{1.73_m2} >60 [facility] Comment on above: mL/min/1.73m2 CKD-EP I Creatinine Equation (2020) L501.2276on 11-04-2024 Ionized Calcium 1.22 mmol/L Normal 1.09-1.30 [facility] Comment on above: Performed By: #### L 500.2500, L500.4100, L506.1000, L501.9520, L503.0105 #### [facility] [address] [place], [address] Magnesiumon 05-05-2025 Magnesium [Mass/Vol] 1.9 mg/dL Normal 1.5-2.2 [facility] Comment on above: Order Comment: Order Date: 06/24/24 Order Info: 666-07 - BMP Order Info: - LIPID Order Info: [id number] - TSH Performed By: #### L 500.2500, L500.4100, L506.1000, L501.9520, L503.0105 #### [facility] [address] [place], [address] Magnesium measurement (mass/ volume)Ordered By: Jc Scales on 11-04-2024 Magnesium (Unsp spec) [Mass/Vol] 1.9 mg/dL 1.5-2.2 [facility] PTHINon 11-04-2024 PTH 65 pg/mL High 11-61 [facility] Comment on above: Order Comment: Order Date: 06/24/24 Order Info: 666-07 - BMP Order Info: - LIPID Order Info: [id number] - TSH Performed By: #### L 500.2500, L500.4100, L506.1000, L501.9520, L503.0105 #### [facility] [address] [place], [address] Phosphoruson 11-04-2024 Phosphate [Mass/Vol] 3.3 mg/dL Normal 2.7-4.5 [facility] Comment on above: Order Comment: Order Date: 06/24/24 Order Info: 666-07 - BMP Order Info: - LIPID Order Info: [id number] - TSH Performed By: #### L 500.2500, L500.4100, L506.1000, L501.9520, L503.0105 #### [facility] [address] [place], [address] Potassium measurement (mass/ volume)Ordered By: Jc Scales on 11-04-2024 Potassium (Unsp spec) [Mass/Vol] 3.9 mmol/L 3.3-5.1 [facility] Serum creatinine measurement (mass/volume)Ordered By: Jc Scales on 11-04-2024 Creatinine [Mass/Vol] 0.69 mg/dL Low 0.70-1.20 [facility] Serum glucose measurement (m ass/volume)Ordered By: Jc Scales on 11-04-2024 Glucose [Mass/Vol] 84 mg/dL 70-99 [facility] Serum or plasma calcium bry urement (mass/volume)Ordered By: Jc Scales on 11-04-2024 Calcium [Mass/Vol] 9.3 mg/dL 7.6-11.0 [facility] Serum or plasma urea nitroge n measurement (mass/volume)Ordered By: Jc Scales on 11-04-2024 Urea nitrogen [Mass/Vol] 11 mg/dL 4-19 [facility] Sodium levelOrdered By: Angel Scales on 11-04-2024 Sodium [Moles/Vol] 140 mmol/L 133-145 [facility] TSH DL <= 0.005 mIU/L QnOrde red By: Jc Scales on 11-04-2024 TSH Qn 1.910 uIU/mL 0.300-4.200 [facility] Thyroid Stim Hormone (TSH)on 11-04-2024 TSH 1.910 uIU/mL Normal 0.300-4.200 [facility] Comment on above: Order Comment: Order Date: 06/24/24 Order Info: [id number] - BMP Order Info: [id number] - LIPID Order Info: [id number] - TSH Performed By: #### L 500.2500, L500.4100, L506.1000, L501.9520, L503.0105 #### [facility] [address] [place], [place], [address] Vitamin D,25 Hydroxyon 11-04 Vitamin D 25-OH 68.6 ng/mL Normal 30-100 [facility] Comment on above: Order Comment: Order Date: 06/24/24 Order Info: [id number] - BMP Order Info: [id number] - LIPID Order Info: [id number] - TSH Result Comment: Deborah min D Status Deficiency: <20 ng/mL (50nmol/L) Insufficiency: 20-30 ng/mL (50-75 nmol/L) Sufficiency: 30-100 ng/mL (75-250 nmol/L) Toxicity: >100 ng/mL (>250 nmol/L) Performed By: #### L 500.2500, L500.4100, L506.1000, L501.9520, L503.0105 #### [facility] [address] [place], [place], [address] Dexa Bone Density Studyon Dexa Bone Density Study [facility] Imaging Services [address] [place], [place] [address] Dexa Bone Density Study MR#: [id number] Acct: [id number] Name: BENJAMÍN LEUNG Rep #: [id number] : 1965 F 58 From: Berto Porras MD PCP: Dr. Jc Scales MD Status: REG CLI Study: Dexa Bone Density Study Date of Exam: 08/01/24 Exam# [id number] Ordering Dr: Jc Scales EXAM: CLINICAL INDICATION: Determine bone density. CLINICAL HISTORY: Postmenopausal COMPARISON: 08/14/2018 TECHNIQUE: Bone densitometry of the lumbar spine and hips was performed using the HOLOGIC DEXA scanner. FINDINGS: Bone Density Measurements: SPINE AP Spine (L1-L4): 0.717 g/cm2 T-Score: -3.0 Z-Score: -1.8 WHO Classification: OSTEOPOROSIS There is -10.3 % change since the prior examination of 08/14/2018 LEFT FEMUR Femoral TOTAL (LEFT): 0.681 g/cm2 T-Score: -2.1 Z-Score: -1.4 WHO Classification: OSTEOPENIA Femoral NECK (LEFT): 0.596 g/cm2 T-Score: -2.3 Z-Score: -1.1 WHO Classification: OSTEOPENIA There is -8.9 % change since the prior examination of 08/14/2018 10 year FRAX: Major osteoporotic fracture: 8.8% Hip fracture: 1.3% RIGHT FEMUR Femoral TOTAL (RIGHT): 0.718 g/cm2 T-Score: -1.8 Z-Score: -1.1 WHO Classification: OSTEOPENIA Femoral NECK (RIGHT): 0.616 g/cm2 T-Score: -2.1 Z-Score: -1.0 WHO Classification: OSTEOPENIA There is -8.5 % change since the prior examination of 08/14/2018 10 year FRAX: Major osteoporotic fracture: 8.2% Hip fracture: 1.0% BD/Dexa Bone Density Study IMPRESSION: Osteoporosis World Health Organization criteria for BMD interpretation classify patients as: Normal (T-score at or above -1.0), Osteopenic (T-score between -1.0 and -2.5),or Osteoporotic (T-score at or below -2.5). The presence of vertebral abnormalities such as scoliosis or osteophytes, or aortic/ligamentous calcifications can alter readings of the lumbar spine. In such cases, readings of the hips are more reliable. Reading Location: [place] CC: Dr. Jc Scales MD Web Applications Administrator: Signed Normal [facility] SCRN MAMM (CAD)W/DOUGLAS BILATo n 08-01-2024 SCRN MAMM (CAD)W/DOUGLAS BILAT [facility] Imaging Services [address] [place] [address] SCRN MAMM (CAD)W/DOUGLAS BILAT MR#: [id number] Acct: [id number] Name: BENJAMÍN LEUNG Rep #: [id number] : 1965 F 58 From: Conner pleitez MD PCP: Dr. Jc Scales MD Status: [facility] Study: SCRN MAMM (CAD)W/DOUGLAS BILAT Date of Exam: 07/05 Exam# [id number] Ordering Dr: Jc Scales PROCEDURE: SCRN MAMM (CAD)W/DOUGLAS BILAT REASON FOR EXAM: F, Age 58 y/o, routine annual mammogram. TECHNIQUE: Bilateral screening digital breast tomosynthesis with 2D and 3D images. Computer aided detection. COMPARISON: Prior exam(s) dating back to June 02, 2020.. FINDINGS: The breasts are extremely dense which lowers the sensitivity of mammography. No suspicious masses, areas of developing architectural distortion, or suspicious calcifications. Stable examination. BI/SCRN MAMM (CAD)W/DOUGLAS BILAT IMPRESSION: BI-RADS 1: NEGATIVE. RECOMMEND ANNUAL MAMMOGRAPHIC SCREENING. Follow-up code: Routine Follow-up The patient will be notified of the results by letter. Reading Location: [place] [address] CC: Dr. Jc Scales MD Web Applications Administrator: Signed Normal [facility] Basic Metabolic Profile (BMP )on 06-28-2024 BUN/CRE 16.2 RATIO Normal - [facility] Comment on above: Order Comment: Order Date: 06/24/24 Order Info: [id number] - BMP Order Info: [id number] - LIPID Order Info: [id number] - TSH Performed By: #### L 500.2500, L500.4100, L506.1000, L501.9520, L503.0105 #### [facility] [address] [place], [place], [address] CA,Total 9.3 mg/dL Normal 8.5-10.1 [facility] Comment on above: Order Comment: Order Date: 06/24/24 Order Info: 0667- - BMP Order Info: [id number] - LIPID Order Info: [id number] - TSH Performed By: #### L 500.2500, L500.4100, L506.1000, L501.9520, L503.0105 #### [facility] [address] [place], [place], [address] Chloride [Moles/Vol] 107 mmol/L Normal 98-107 [facility] Comment on above: Order Comment: Order Date: 06/24/24 Order Info: 0667- - BMP Order Info: [id number] - LIPID Order Info: [id number] - TSH Performed By: #### L 500.2500, L500.4100, L506.1000, L501.9520, L503.0105 #### [facility] [address] [place], [address] CO2 [Moles/Vol] 29.0 mmol/L Normal 21.0-32.0 [facility] Comment on above: Order Comment: Order Date: 06/24/24 Order Info: 666-07 - BMP Order Info: [id number] - LIPID Order Info: [id number] - TSH Performed By: #### L 500.2500, L500.4100, L506.1000, L501.9520, L503.0105 #### [facility] [address] [place], [address] Creatinine [Mass/Vol] 0.68 mg/dL Normal 0.55-1.02 [facility] Comment on above: Order Comment: Order Date: 06/24/24 Order Info: 666-07 - BMP Order Info: - LIPID Order Info: [id number] - TSH Result Comment: The validity of the calculated GFR GFRAA in patients over 70 years has not been determined. Clinical correlation is essential. Performed By: #### L 500.2500, L500.4100, L506.1000, L501.9520, L503.0105 #### [facility] [address] [place], [address] EST GFR - AA 116 mL/min Normal >60 [facility] Comment on above: Order Comment: Order Date: 06/24/24 Order Info: 666-07 - BMP Order Info: [id number] - LIPID Order Info: [id number] - TSH Result Comment: Afri can Cypriot GFR Calc Performed By: #### L 500.2500, L500.4100, L506.1000, L501.9520, L503.0105 #### [facility] [address] [place], [address] GAP 3 Low 5-15 [facility] Comment on above: Order Comment: Order Date: 06/24/24 Order Info: 666-07 - BMP Order Info: - LIPID Order Info: [id number] - TSH Performed By: #### L 500.2500, L500.4100, L506.1000, L501.9520, L503.0105 #### [facility] [address] [place], [address] GFR/1.73 sq M.predicted among non-blacks MDRD (S/P/Bld) [Vol rate/Area] 95 mL/min/{1.73_m2} Normal >60 [facility] Comment on above: Order Comment: Order Date: 06/24/24 Order Info: 666-07 - BMP Order Info: - LIPID Order Info: [id number] - TSH Result Comment: Non- GFR Calc Performed By: #### L 500.2500, L500.4100, L506.1000, L501.9520, L503.0105 #### [facility] [address] [place], [address] Glucose [Mass/Vol] 80 mg/dL Normal 74-106 [facility] Comment on above: Order Comment: Order Date: 06/24/24 Order Info: 666-07 - BMP Order Info: - LIPID Order Info: [id number] - TSH Performed By: #### L 500.2500, L500.4100, L506.1000, L501.9520, L503.0105 #### [facility] [address] [place], [address] Potassium [Moles/Vol] 3.9 mmol/L Normal 3.5-5.1 [facility] Comment on above: Order Comment: Order Date: 06/24/24 Order Info: 666-07 - BMP Order Info: - LIPID Order Info: [id number] - TSH Performed By: #### L 500.2500, L500.4100, L506.1000, L501.9520, L503.0105 #### [facility] [address] [place], [address] Sodium [Moles/Vol] 138 mmol/L Normal 136-145 [facility] Comment on above: Order Comment: Order Date: 06/24/24 Order Info: 666-07 - BMP Order Info: - LIPID Order Info: [id number] - TSH Performed By: #### L 500.2500, L500.4100, L506.1000, L501.9520, L503.0105 #### [facility] [address] [place], [address] Urea nitrogen [Mass/Vol] 11 mg/dL Normal 7-18 [facility] Comment on above: Order Comment: Order Date: 06/24/24 Order Info: 666-07 - BMP Order Info: - LIPID Order Info: [id number] - TSH Performed By: #### L 500.2500, L500.4100, L506.1000, L501.9520, L503.0105 #### [facility] [address] [place], [address] Lipid Profileon 06-28-2024 Cholesterol [Mass/Vol] 190 mg/dL Normal 200 [facility] Comment on above: Order Comment: Order Date: 06/24/24 Order Info: 666-07 - BMP Order Info: - LIPID Order Info: [id number] - TSH Result Comment: <200 mg/dL Desirable 200-240 mg/dL Borderline >240 mg/dL High Risk Performed By: #### L 500.2500, L500.4100, L506.1000, L501.9520, L503.0105 #### [facility] [address] [place], [address] Cholesterol in HDL [Mass/Vol] 61 mg/dL Normal [facility] Comment on above: Order Comment: Order Date: 06/24/24 Order Info: 666-07 - BMP Order Info: - LIPID Order Info: [id number] - TSH Result Comment: The drugs N-Acetylcysteine and Metamizole may falsely depress this assay. Reference Range HDL <40 mg/dL Low HDL Cholesterol HDL >or= 60 mg/dL High HDL Cholesterol Performed By: #### L 500.2500, L500.4100, L506.1000, L501.9520, L503.0105 #### [facility] [address] [place], [address] Cholesterol in LDL [Mass/Vol] 103 mg/dL Normal 0-130 [facility] Comment on above: Order Comment: Order Date: 06/24/24 Order Info: 0667-1 - BMP Order Info: [id number] - LIPID Order Info: 3015-3 - TSH Performed By: #### L 500.2500, L500.4100, L506.1000, L501.9520, L503.0105 #### [facility] [address] [place], [address] Cholesterol in VLDL [Mass/Vol] 26 mg/dL Normal 5-40 [facility] Comment on above: Order Comment: Order Date: 06/24/24 Order Info: 0667 - BMP Order Info: [id number] - LIPID Order Info: 3015-3 - TSH Performed By: #### L 500.2500, L500.4100, L506.1000, L501.9520, L503.0105 #### [facility] [address] [place], [address] Triglyceride [Mass/Vol] 128 mg/dL Normal W [facility] Comment on above: Order Comment: Order Date: 06/24/24 Order Info: 0667-1 - BMP Order Info: [id number] - LIPID Order Info: 6-3 - TSH Result Comment: The drugs N-Acetylcysteine and Metamizole may falsely depress this assay. Serum Triglycerides Reference Interval Normal <150 mg/dL Borderline high 150 - 199 mg/dL High 200 - 499 mg/dL Very High > or = 500 mg/dL Performed By: #### L 500.2500, L500.4100, L506.1000, L501.9520, L503.0105 #### [facility] [address] [place], [address] Thyroid Stim Hormone (TSH)on 06-28-2024 TSH 2.100 uIU/mL Normal 0.358-3.740 [facility] Comment on above: Order Comment: Order Date: 06/24/24 Order Info: 0667-1 - BMP Order Info: 18872-2 - LIPID Order Info: 3016-3 - TSH Performed By: #### L 500.2500, L500.4100, L506.1000, L501.9520, L503.0105 #### [facility] [address] [place], [address] Vitamin B12on 06-28-2024 Cobalamin (Vitamin B12) [Mass/Vol] 472 pg/mL Normal 211-911 [facility] Comment on above: Order Comment: Order Date: 06/24/24 Order Info: 2132-9 - B12 Order Info: [id number] - VITD25 Performed By: #### L 500.2500, L500.4100, L506.1000, L501.9520, L503.0105 #### [facility] [address] [place], [place], [address] Vitamin D,25 Hydroxyon 06-28 Vitamin D 25-OH 14.3 ng/mL Normal [facility] Comment on above: Order Comment: Order Date: 06/24/24 Order Info: [id number] - B12 Order Info: [id number] - VITD25 Result Comment: Deborah min D 25(OH) Status Range Deficiency <20 ng/mL (50nmol/L) Insufficiency 20 - 30 ng/mL (50 - 75 nmol/L) Sufficiency 30 - 100 ng/mL (75 - 250 nmol/L) Toxicity >100 ng/mL (>250 nmol/L) Performed By: #### L 500.2500, L500.4100, L506.1000, L501.9520, L503.0105 #### [facility] [address] [place], [address] ELIANE CULTURE-STOOL (19960)on 08-08-2018 Bacteria identified Cx Nom (Unsp spec) NSS Normal [facility] Work Phone: Comment on above: No Salmonella or Pearl gella recovered. PATIENT NOT FASTINGP ERFORMED BY: CB [facility] Psbyns9476 [address] RoadDublin [place] [id number] Information: SRC:ST SRC:ST Bacteria identified Cx Nom (Unsp spec) NCI Normal [facility] Work Phone: Comment on above: No Campylobacter spe cies isolated. PATIENT NOT FASTINGP ERFORMED BY: CB [facility] Hhiarp3736 [address] RoadDublin [place] [id number] Information: SRC:ST SRC:ST Campylobacter sp identified Org specific cx Nom (St) Final report Normal [facility] Work Phone: Comment on above: PATIENT NOT FASTINGP ERFORMED BY: CB [facility] Vwyvgs4258 [address] RoadDublin [place] [id number] Information: SRC:ST SRC:ST E. coli shiga-like toxin IA Ql (St) Negative Normal [facility] Work Phone: Comment on above: PATIENT NOT FASTINGP ERFORMED BY: CB [facility] Yurgto7612 [address]Dublin [place] [id number] Information: SRC:ST SRC:ST Salmonella and Shigella sp identified Org specific cx Nom (St) Final report Normal Comprehensi ve Internal Medicine Work Phone: Comment on above: PATIENT NOT FASTINGP ERFORMED BY: CB [facility] Pxvxpi7472 [address] RoadDublin [place] [id number] Information: SRC:ST SRC:ST Clostridium difficile Toxin A+B, EIA (79252)on 08-08-2018 C. difficile toxin A+B IA Ql (St) Negative Normal [facility] Work Phone: Comment on above: PATIENT NOT FASTINGP ERFORMED BY: CB [facility] Touyia2145 [address]Dublin [place] [id number] LEUKOCYTE COUNT, FECAL (8905 5)on 08-08-2018 WBC LM Ql (St) NWBC Normal Comprehens flaquita [facility] Work Phone: Comment on above: No white blood cells seen. PATIENT NOT FASTINGP ERFORMED BY: TO Vision[employer] TechnologiesKansas City Va Medical CenterZnqnwr3054 [facility] [id number] WBC LM Ql (St) Final report Normal Comprehe nsive Internal Medicine Work Phone: Comment on above: PATIENT NOT FASTINGP ERFORMED BY: VisionScope TechnologiesBeaumont Hospital6370 [facility] [id number] OCCULT BLOOD FECES SCREEN (8 2270)on 08-08-2018 Lower GI hemoglobin IA Ql (St) Negative Normal [facility] Work Phone: Comment on above: PATIENT NOT FASTINGP ERFORMED BY: VisionScope TechnologiesKansas City Va Medical CenterQwntwf3245 [facility] [id number] OVA & PARASITE DIR SMEAR (87 177)on 08-08-2018 Ova and parasites identified Concentration Nom (St) NOCP1 Normal [facility] Work Phone: Comment on above: No ova, cysts, or pa rasites seen. .One negative specimen does not rule out the possibility of aparasitic infection. PATIENT NOT FASTINGP ERFORMED BY: [facility]Scope TechnologiesBeaumont Hospital6370 [facility] [id number] Ova and parasites identified LM Nom (Unsp spec) Final report Normal [facility] Work Phone: Comment on above: These results were o btained using wet preparation(s) and trichromestained smear. This test does not include testing for Cryptosporidiumparvum, Cyclospora, or Microsporidia. PATIENT NOT FASTINGP ERFORMED BY: VisionScope TechnologiesKansas City Va Medical CenterUmmasc0685 [facility] [id number] CBC W/AUTO DIFF WBC (90508)o n 07-31-2018 Basophils #/vol (Bld) 0.0 {x10E3/uL} Normal 0.0-0.2 [facility] Work Phone: Comment on above: PATIENT NOT FASTINGP ERFORMED BY: VisionScope TechnologiesBeaumont Hospital6370 [facility] [id number] Basophils/100 WBC (Bld) 0 % Normal C omprehensive Internal Medicine Work Phone: Comment on above: PATIENT NOT FASTINGP ERFORMED BY: [facility] Mvgdhj3862 [address]Dublin [place] [id number] Eosinophils #/vol (Bld) 0.1 {x10E3/uL} Normal 0.0-0.4 [facility] Work Phone: Comment on above: PATIENT NOT FASTINGP ERFORMED BY: TO [facility] Tlssil7764 [address]Dublin [place] [id number] Eosinophils/100 WBC (Bld) 1 % Normal [facility] Work Phone: Comment on above: PATIENT NOT FASTINGP ERFORMED BY: TO [facility] Sywtfo8173 [address]Dublin [place] [id number] Erythrocyte distribution width Ratio (RBC) 14.0 % Normal 12.3-15.4 [facility] Work Phone: Comment on above: PATIENT NOT FASTINGP ERFORMED BY: TO [facility] Wtfilr2045 [address] RoadDuin [place] [id number] Hematocrit Volume Fraction (Bld) 45.0 % Normal 34.0-46.6 [facility] Work Phone: Comment on above: PATIENT NOT FASTINGP ERFORMED BY: TO [facility] Blajjb9272 [address]Dublin [place] [id number] Hemoglobin mass conc (Bld) 15.2 g/dL Normal 11.1-15.9 [facility] Work Phone: Comment on above: PATIENT NOT FASTINGP ERFORMED BY: TO [facility] Bqywad7425 [address] RoadDublin [place] [id number] Immature granulocytes #/vol (Bld) 0.0 {x10E3/uL} Normal 0.0-0.1 [facility] Work Phone: Comment on above: PATIENT NOT FASTINGP ERFORMED BY: CB [facility] Oycyfb2134 [address]Dublin [place] [id number] Immature granulocytes/100 WBC (Bld) 0 % Normal [facility] Work Phone: Comment on above: PATIENT NOT FASTINGP ERFORMED BY: TO [facility] Houelu7768 [address]Dublin [place] [id number] Lymphocytes #/vol (Bld) 1.5 {x10E3/uL} Normal 0.7-3.1 [facility] Work Phone: Comment on above: PATIENT NOT FASTINGP ERFORMED BY: TO [facility] Iypjfg9534 [address]blin [place] [id number] Lymphocytes/100 WBC (Bld) 22 % Normal [facility] Work Phone: Comment on above: PATIENT NOT FASTINGP ERFORMED BY: CB [facility] Rmdcld[address] [facility]in [place] [id number] MCH Entitic mass (RBC) 28.7 pg Normal 26.6-33.0 Co [facility] Work Phone: Comment on above: PATIENT NOT FASTINGP ERFORMED BY: TO [facility] Tlgere[address] [facility]in [place] [id number] MCHC mass conc (RBC) 33.8 g/dL Normal 31.5-35.7 [facility] Internal Medicine Work Phone: Comment on above: PATIENT NOT FASTINGP ERFORMED BY: TO [facility] Bltmdl6425 [address] [facility]in [place] [id number] MCV Entitic volume (RBC) 85 fL Normal 79-97 [facility] Work Phone: Comment on above: PATIENT NOT FASTINGP ERFORMED BY: TO [facility] Olkkxm5[address] [facility]in [place] [id number] Monocytes #/vol (Bld) 0.6 {x10E3/uL} Normal 0.1-0.9 [facility] Work Phone: Comment on above: PATIENT NOT FASTINGP ERFORMED BY: CB [facility] Vvnkjg4039 [address]Dublin [place] [id number] Monocytes/100 WBC (Bld) 9 % Normal C [facility] Internal Medicine Work Phone: Comment on above: PATIENT NOT FASTINGP ERFORMED BY: CB [facility] Ehhsaj0049 [address]blin [place] [id number] Neutrophils #/vol (Bld) 4.7 {x10E3/uL} Normal 1.4-7.0 [facility] Work Phone: Comment on above: PATIENT NOT FASTINGP ERFORMED BY: TO [employer]ues[employer] Dvpiss3350 [facility] [id number] Neutrophils/100 WBC (Bld) 68 % Normal [facility] Work Phone: Comment on above: PATIENT NOT FASTINGP ERFORMED BY: [facility]6370 [facility] [id number] Platelets #/vol (Bld) 372 {x10E3/uL} Normal 150-379 [facility] Work Phone: Comment on above: PATIENT NOT FASTINGP ERFORMED BY: [address] [id number] RBC #/vol (Bld) 5.29 {x10E6/uL} Abnormal 3.77-5.28 [facility] Internal Medicine Work Phone: Comment on above: PATIENT NOT FASTINGP ERFORMED BY: CelioJonathan [place] 9564870 [facility] [id number] WBC #/vol (Bld) 6.9 {x10E3/uL} Normal 3.4-10.8 [facility] Internal Medicine Work Phone: Comment on above: PATIENT NOT FASTINGP ERFORMED BY: [facility] Tcvedo9897 [facility] [id number] EBV Panel (28573)on 07-31-19 19 EBV capsid IgG IA Qn (S) 93.6 U/mL Abnormal 0.0-17.9 [facility] Work Phone: Comment on above: Negative <18.0 Equiv ocal 18.0 - 21.9 Positive >21.9 PATIENT NOT FASTINGP ERFORMED BY: LabBeaumont Hospital6370 [facility] [id number] EBV capsid IgM IA Qn (S) <36.0 Normal 0.0-35.9 [facility] Work Phone: Comment on above: Negative <36.0 Equiv ocal 36.0 - 43.9 Positive >43.9 PATIENT NOT FASTINGP ERFORMED BY: [employer] Yfdxjf9239 Ig[address]iasNuHabitatAtrium Health [facility] [id number] EBV early IgG Qn (S) 34.9 U/mL Abnormal 0.0-8.9 Comp [facility] Internal Medicine Work Phone: Comment on above: Hepatitis A, Hepatit is C and HIV antibodies may cross-reactwith this assay. Negative < 9.0 Equivocal 9.0 - 10.9 Positive >10.9 PATIENT NOT FASTINGP ERFORMED BY: [employer] Hszhwc25[address] ZeetlAtrium Health Lincoln [id number] EBV nuclear IgG IA Qn (S) <18.0 Normal 0.0-17.9 [facility] Work Phone: Comment on above: Negative <18.0 Equiv ocal 18.0 - 21.9 Positive >21.9 PATIENT NOT FASTINGP ERFORMED BY: [employer] IglesiasNuHabitatAtrium Health [facility] [id number] Service comment Interp (Unsp spec) SPRCS Normal [facility] Work Phone: Comment on above: EBV Interpretation C santiago . Interpretation EBV-IgM EA(D)-IgG VCA-IgG EBNA-IgG . EBV Seronegative - - - - Early Phase + - - - Acute Primary + +or- + - Infection Convalescence/Past - +or- + + Infection Reactivated +or- + + + Infection + Antibody Present - Antibody Absent PATIENT NOT FASTINGP ERFORMED BY: [employer] Qdbxcx4136 [place] TvoopAtrium Health [facility] [id number] GGTon 07-31-2018 Gamma glutamyl transferase enzyme act/vol 19 [iU]/L Normal 0-60 [facility] Work Phone: Comment on above: PATIENT NOT FASTINGP ERFORMED BY: [employer] Igpiiw9330 [facility] [id number] METABOLIC PANEL, COMPREHENSI VE (84736)on 07-31-2018 Albumin mass conc 4.7 g/dL Normal 3.5-5.5 Compreh ensive Internal Medicine Work Phone: Comment on above: PATIENT NOT FASTINGP ERFORMED BY: [facility] Xxygml5106 [address]Dublin [place] [id number] Albumin/Globulin mass ratio 1.6 {ratio} Normal 1.2-2.2 [facility] Internal Medicine Work Phone: Comment on above: PATIENT NOT FASTINGP ERFORMED BY: CB [facility] Ixqtrx3278 [address] RoadDublin [place] [id number] ALP enzyme act/vol 132 [iU]/L Abnormal 39-117 [facility] Medicine Work Phone: Comment on above: PATIENT NOT FASTINGP ERFORMED BY: CB [facility] Vwmwrp5441 [address] RoadDublin [place] [id number] ALT enzyme act/vol 31 [iU]/L Normal 0-32 [facility] Medicine Work Phone: Comment on above: PATIENT NOT FASTINGP ERFORMED BY: [facility] Jogjyt6997 [address] RoadDublin [place] [id number] AST enzyme act/vol 26 [iU]/L Normal 0-40 [facility] Work Phone: Comment on above: PATIENT NOT FASTINGP ERFORMED BY: [facility] Lyedbp4084 [address] RoadDublin [place] [id number] Bilirubin mass conc 1.1 mg/dL Normal 0.0-1.2 Compr [facility] Internal Medicine Work Phone: Comment on above: PATIENT NOT FASTINGP ERFORMED BY: [facility] Lgqfyc8231 [address] RoadDublin [place] [id number] Calcium mass conc 10.2 mg/dL Normal 8.7-10.2 Compreh [facility] Internal Medicine Work Phone: Comment on above: PATIENT NOT FASTINGP ERFORMED BY: CB [facility] Zhnmuh0102 [address] RoadDublin [place] [id number] Chloride molar conc 105 mmol/L Normal 96-106 Compr [facility] Internal Medicine Work Phone: Comment on above: PATIENT NOT FASTINGP ERFORMED BY: CB [facility] Exvvtc5408 [address] RoadDublin [place] [id number] CO2 molar conc 24 mmol/L Normal 20-29 Comprehens flaquita [facility] Work Phone: Comment on above: PATIENT NOT FASTINGP ERFORMED BY: TO LabCokaelyn DuvallSvidgf3967 [address] RoadDublin [place] [id number] Creatinine mass conc 0.75 mg/dL Normal 0.57-1.00 Comp rehensive [facility] Medicine Work Phone: Comment on above: PATIENT NOT FASTINGP ERFORMED BY: TO [facility] Evxqya7131 [address] Roadblin [place] [id number] GFR/1.73 sq M predicted among blacks CKD-EPI vol rate/area (S/P/Bld) 107 mL/min/1.73 Normal Comprehensiv e Internal Medicine Work Phone: Comment on above: PATIENT NOT FASTINGP ERFORMED BY: TO LabCokaelyn DuvallFfzaqv1432 [address] RoadDublin [place] [id number] GFR/1.73 sq M predicted among non-blacks CKD-EPI vol rate/area (S/P/Bld) 93 mL/min/1.73 Normal Comprehe nsive Internal Medicine Work Phone: Comment on above: PATIENT NOT FASTINGP ERFORMED BY: TO LabCokaelyn DuvallKgkhhv[address] [facility] Centerblin [place] [id number] Globulin mass conc (S) 3.0 g/dL Normal 1.5-4.5 Co [facility] campusehensive [facility] Work Phone: Comment on above: PATIENT NOT FASTINGP ERFORMED BY: TO [facility] Xkyygr3507 [address] [facility]in [place] [id number] Glucose mass conc 89 mg/dL Normal 65-99 Compreh ensive [facility] Work Phone: Comment on above: PATIENT NOT FASTINGP ERFORMED BY: TO [facility] Sfouns8646 [address]Dublin [place] [id number] Potassium molar conc 4.6 mmol/L Normal 3.5-5.2 Comp rehensive [facility] Medicine Work Phone: Comment on above: PATIENT NOT FASTINGP ERFORMED BY: TO [facility] Dnkftc[address] [facility]bl[facility] [place] [id number] Protein mass conc 7.7 g/dL Normal 6.0-8.5 Compreh ensive [facility] Medicine Work Phone: Comment on above: PATIENT NOT FASTINGP ERFORMED BY: TO LabCokaelyn CarsonTlhgfl9547 [address] [facility] [id number] Sodium molar conc 144 mmol/L Normal 134-144 Compreh ensive Internal Medicine Work Phone: Comment on above: PATIENT NOT FASTINGP ERFORMED BY: TO [facility] Jbgorg9106 [address] [facility] [id number] Urea nitrogen mass conc 12 mg/dL Normal 6-24 C omprehensive Internal Medicine Work Phone: Comment on above: PATIENT NOT FASTINGP ERFORMED BY: TO [facility] Reujmn6611 [address] [facility] [id number] Urea nitrogen/Creatinine mass ratio 16 mg/mg Normal 9- [facility] Work Phone: Comment on above: PATIENT NOT FASTINGP ERFORMED BY: TO [facility] Bhjure0488 [facility] [id number] Please noteon 07-31-2018 Please note SPRCS Normal [facility] Work Phone: Comment on above: We have received you r request for additional testing or testverification. You will be notified if we are unable to processyour request. PATIENT NOT FASTINGP ERFORMED BY: TO [facility] Hfdqcq3450 [facility] [id number] Rapid Flu (41314 x 2)Ordered By: Alex Scott on 07-31-2018 FLUAV Ag IA Ql (Throat) Negative Normal C omprehensive [facility] Work Phone: Written Authorizationon 07-04 Written Authorization WAR Normal Com prehensive Internal Medicine Work Phone: Comment on above: Written Authorizatio n Received.Authorization received from Written request [id number] by Maria Isabel Walls PATIENT NOT FASTINGP ERFORMED BY: TO [facility] Pynmqd9024 [facility] [id number] Glucoseon 09-22-2017 Glucose mass conc 76 mg/dL Normal 74-106 Compreh ensive Internal Medicine Work Phone: Comment on above: Please note revised GLUCOSE reference range /02/2018. THIS REQUISITION IS A SELF DIRECTED LABORATORY ORDER.THESE RESULTS ARE BEING SENT TO YOU A COURTESY PERPATIENT REQUEST.[facility] [address] [place], [place], [address] Lipid Profileon 09-22-2017 Cholesterol in HDL mass conc 52 mg/dL Normal [facility] Work Phone: Comment on above: The drugs N-Acetylcy steine and Metamizole may falselydepress this assay. Reference Range HDL <40 mg/dL Low HDL Cholesterol HDL >or= 60 mg/dL High HDL Cholesterol THIS REQUISITION IS A SELF DIRECTED LABORATORY ORDER.THESE RESULTS ARE BEING SENT TO YOU A COURTESY PERPATIENT REQUEST.[facility] [address] [place], [place], [phone] Cholesterol in LDL mass conc 97 mg/dL Normal 0-130 [facility] Work Phone: Cholesterol in LDL mass conc 97 mg/dL Normal 0-130 [facility] Work Phone: Comment on above: THIS REQUISITION IS A SELF DIRECTED LABORATORY ORDER.THESE RESULTS ARE BEING SENT TO YOU A COURTESY PERPATIENT REQUEST.[facility] [address] [place], [place], [phone] Cholesterol in VLDL mass conc 22 mg/dL Normal 5-40 [facility] Work Phone: Comment on above: THIS REQUISITION IS A SELF DIRECTED LABORATORY ORDER.THESE RESULTS ARE BEING SENT TO YOU A COURTESY PERPATIENT REQUEST.[facility] [address] [place], [place], [phone] Cholesterol mass conc 171 mg/dL Normal Com prehensive Internal Medicine Work Phone: Comment on above: <200 mg/dL Desirable 200-240 mg/dL Borderline >240 mg/dL High Risk THIS REQUISITION IS A SELF DIRECTED LABORATORY ORDER.THESE RESULTS ARE BEING SENT TO YOU A COURTESY PERPATIENT REQUEST.[facility] [address] [place], [place], [address] Triglyceride mass conc 109 mg/dL Normal Co mprehensive [facility] Work Phone: Comment on above: The drugs N-Acetylcy steine and Metamizole may falselydepress this assay.Serum Triglycerides Reference Interval Normal <150 mg/dL Borderline high 150 - 199 mg/dL High 200 - 499 mg/dL Very High > or = 500 mg/dL THIS REQUISITION IS A SELF DIRECTED LABORATORY ORDER.THESE RESULTS ARE BEING SENT TO YOU A COURTESY PERPATIENT REQUEST.[facility] [address] [place], [place], [id number] Lipid Profile 22 mg/dL Normal 5-40 Comprehensi Internal Medicine Work Phone: Comment on above: THIS REQUISITION IS A SELF DIRECTED LABORATORY ORDER.THESE RESULTS ARE BEING SENT TO YOU A COURTESY PERPATIENT REQUEST.[facility] [address] [place], [place], [id number] Glucoseon 08-17-2017 Glucose mass conc 76 mg/dL Normal 74-106 Compreh ensive Internal Medicine Work Phone: Comment on above: Please note revised GLUCOSE reference range /02/2018. THIS REQUISITION IS A SELF DIRECTED LABORATORY ORDER.THESE RESULTS ARE BEING SENT TO YOU A COURTESY PERPATIENT REQUEST.[facility] [address] [place], [place], [address] Lipid Profileon 08-17-2017 Cholesterol in HDL mass conc 53 mg/dL Normal [facility] Work Phone: Comment on above: The drugs N-Acetylcy steine and Metamizole may falselydepress this assay. Reference Range HDL <40 mg/dL Low HDL Cholesterol HDL >or= 60 mg/dL High HDL Cholesterol THIS REQUISITION IS A SELF DIRECTED LABORATORY ORDER.THESE RESULTS ARE BEING SENT TO YOU A COURTESY PERPATIENT REQUEST.[facility] [address] [place], [place], [address] Cholesterol in LDL mass conc 90 mg/dL Normal 0-130 [facility] Work Phone: Cholesterol in LDL mass conc 90 mg/dL Normal 0-130 [facility] Work Phone: Comment on above: THIS REQUISITION IS A SELF DIRECTED LABORATORY ORDER.THESE RESULTS ARE BEING SENT TO YOU A COURTESY PERPATIENT REQUEST.[facility] [address] [place], [place], [id number] Cholesterol in VLDL mass conc 24 mg/dL Normal 5-40 [facility] Work Phone: Comment on above: THIS REQUISITION IS A SELF DIRECTED LABORATORY ORDER.THESE RESULTS ARE BEING SENT TO YOU A COURTESY PERPATIENT REQUEST.[facility] [address] [place], [place], [address] Cholesterol mass conc 167 mg/dL Normal Com prehensive Internal Medicine Work Phone: Comment on above: <200 mg/dL Desirable 200-240 mg/dL Borderline >240 mg/dL High Risk THIS REQUISITION IS A SELF DIRECTED LABORATORY ORDER.THESE RESULTS ARE BEING SENT TO YOU A COURTESY PERPATIENT REQUEST.[facility] [address] [place], [place], [address] Triglyceride mass conc 119 mg/dL Normal Co [facility] campusehensive [facility] Work Phone: Comment on above: The drugs N-Acetylcy steine and Metamizole may falselydepress this assay.Serum Triglycerides Reference Interval Normal <150 mg/dL Borderline high 150 - 199 mg/dL High 200 - 499 mg/dL Very High > or = 500 mg/dL THIS REQUISITION IS A SELF DIRECTED LABORATORY ORDER.THESE RESULTS ARE BEING SENT TO YOU A COURTESY PERPATIENT REQUEST.[facility] [address] [place], [place], [id number] Lipid Profile 24 mg/dL Normal 5-40 Comprehensi Internal Medicine Work Phone: Comment on above: THIS REQUISITION IS A SELF DIRECTED LABORATORY ORDER.THESE RESULTS ARE BEING SENT TO YOU A COURTESY PERPATIENT REQUEST.[facility] [address] [place], [place], [id number] Follicle Stimulating Hormone on 04-06-2017 Follitropin Qn 37.0 m[IU]/mL Normal Compreh ensive Internal Medicine Work Phone: Comment on above: NORMAL REFERENCE RAN GES FEMALE FOLLICULAR 2.3 - 12.6 mIU/mL MID-CYCLE PEAK 5.2 - 17.5 mIU/mL LUTEAL 1.7 - 12.9 mIU/mL POST-MENOPAUSAL ON MHT 5.9 - 72.8 mIU/mL NOT ON MHT 12.7 - 132.2 mlU/mL MALE 0.7 - 10.8 mIU/mLNEW TEST METHOD AND REFERENCE RANGES NOVEMBER 21, 2011 CYTOLOGY INFORMATION :- CLINICAL INFORMATION:- DATE LMP/MENOPAUSE: 730220 LMP- COLLECTION VIAL: Thin Prep Vial- OCCUPATIONAL MEDICINE SPECIALIST SOURCE: CERVICAL/ENDOCERVICAL- COLLECTION TECHNIQUE: BRUSH/SPATULAOhio[facility] Medical Center [address] [place], [address] PAP I-G w/rfx hrHPVon 2016 COMM . Normal [facility] Work Phone: PAPSMR Comment Normal [facility] Work Phone: Comment on above: The Pap smear is a s creening test designed to aid in thedetection of premalignant and malignant conditions of theuterine cervix. It is not a diagnostic procedure andshould not be used as the sole means of detecting cervicalcancer. Both false-positive and false-negative reports dooccur. The HPV DNA reflex c clau were not met with this specimenresult therefore, no HPV testing was performed.Performed at: [address] [id number] Director: Sammie Sanders MD, Phone: [phone] Jazzy Mcdonald, Cyto technologist (ASCP) NEGATIVE FOR INTRAEP ITHELIAL LESION AND MALIGNANCY.CELLULAR CHANGES ASSOCIATED WITH INFLAMMATION ARE PRESENT. This liquid based Th inPrep(R) pap test was screened withthe use of an image guided system. Satisfactory for joceline luation. Endocervical and/or squamous metaplasticcells (endocervical component) are present. PAP I-G w/rfx hrHPV Comment Normal [facility] Work Phone: Comment on above: This liquid based Th inPrep(R) pap test was screened withthe use of an image guided system. Specimen Comment: No . of containers..01 ThinPrep VialLab[facility] (refer to report for specific site)refer to report for address and phone number The Pap smear is a s creening test designed to aid in thedetection of premalignant and malignant conditions of theuterine cervix. It is not a diagnostic procedure andshould not be used as the sole means of detecting cervicalcancer. Both false-positive and false-negative reports dooccur. Satisfactory for joceline luation. Endocervical and/or squamous metaplasticcells (endocervical component) are present. NEGATIVE FOR INTRAEP ITHELIAL LESION AND MALIGNANCY.CELLULAR CHANGES ASSOCIATED WITH INFLAMMATION ARE PRESENT. Jazzy Mcdonald, Cyto technologist (ASCP) The HPV DNA reflex jignesh ogluin were not met with this specimenresult therefore, no HPV testing was performed.Performed at: [address] [id number] Director: Sammie Sanders MD, Phone: [phone] PAP I-G w/rfx hrHPV . Normal Compr [facility] Internal Medicine Work Phone: Comment on above: Specimen Comment: No . of containers..01 ThinPrep VialLabCorp (refer to report for specific site)refer to report for address and phone number DHEA-S (DEHYDROEPIANDROSTERO NE SULFATE) ([id number])on 04-22-2015 Dehydroepiandrosterone sulfate (DHEA-S) mass conc 74.6 ug/dL Normal 41.2-243.7 [facility] Work Phone: Comment on above: PATIENT NOT FASTINGP ERFORMED BY: [employer] Sho[facility] NetworkVirt[facility])Ofkrpu7865 [place] TvoopAtrium Health [facility] [id number] BY: [employer] [id number] FERRITIN (69998)on 5 Ferritin mass conc 14 ng/mL Abnormal 15-150 [facility] Work Phone: Comment on above: PATIENT NOT FASTINGP ERFORMED BY: Youjialin6370 [address] [facility] [id number] BY: LabCo[address] [id number] Homocysteine, Plasma (29130) on 04-22-2015 Homocysteine molar conc 7.6 umol/L Normal 0.0-15.0 C omprehensive Internal Medicine Work Phone: Comment on above: PATIENT NOT FASTINGP ERFORMED BY: CB [facility] Hogzdw4920 [facility] [id number] BY: LabCo[address] [id number] IRON (82703)on 04-22-2015 Iron mass conc 70 ug/dL Normal 35-155 Comprehens flaquita Internal Medicine Work Phone: Comment on above: PATIENT NOT FASTINGP ERFORMED BY: CB [facility] Deptkj3692 [facility] [id number] BY: Lab[address] [id number] Metabolic Panel, Comprehensi ve (76433)on 04-22-2015 Albumin mass conc 4.3 g/dL Normal 3.5-5.5 Compreh ensive Internal Medicine Work Phone: Comment on above: PATIENT NOT FASTINGP ERFORMED BY: CB [facility] Fqiwbt8142 [facility] [id number] BY: Lab[address] [id number] Information: 157859,Q83601 Albumin/Globulin mass ratio 1.7 {ratio} Normal 1.1-2.5 [facility] Work Phone: Comment on above: PATIENT NOT FASTINGP ERFORMED BY: CB [facility] Jhjjjb5350 [facility] [id number] BY: Lab[address] [id number] Information: 347333,B53574 ALP enzyme act/vol 151 [iU]/L Abnormal 39-117 Compre hensive Internal Medicine Work Phone: Comment on above: PATIENT NOT FASTINGP ERFORMED BY: CB [facility] Kmxpzi6491 Iglesias RoadDublin [place] [id number] BY: LabCo[address] [id number] Information: 385154,K09888 ALT enzyme act/vol 16 [iU]/L Normal 0-32 [facility] Internal [facility] Work Phone: Comment on above: PATIENT NOT FASTINGP ERFORMED BY: CB [facility] Dhwxaf4938 Iglesias RoadDublin [place] [id number] BY: LabCo[address] [id number] Information: 489868,W01191 AST enzyme act/vol 25 [iU]/L Normal 0-40 [facility] Internal Medicine Work Phone: Comment on above: PATIENT NOT FASTINGP ERFORMED BY: CB [facility] Nujnwt5440 Iglesias RoadAtrium Health [facility] [id number] BY: Lab[address] [id number] Information: 001390,I34696 Bilirubin mass conc 1.2 mg/dL Normal 0.0-1.2 Compr [facility] Internal Medicine Work Phone: Comment on above: PATIENT NOT FASTINGP ERFORMED BY: CB [facility] Ibsric3300 [address] [facility] [place] [id number] BY: [facility] [address] [id number] Information: 155099,K91558 Calcium mass conc 9.5 mg/dL Normal 8.7-10.2 [facility] Work Phone: Comment on above: PATIENT NOT FASTINGP ERFORMED BY: CB [facility] Xomyxu4934 Ig[address]ias RoadDublin [place] [id number] BY: Lab[address] [id number] Information: 259579,C47238 Chloride molar conc 104 mmol/L Normal 97-108 Compr ehensive Internal Medicine Work Phone: Comment on above: PATIENT NOT FASTINGP ERFORMED BY: CB [facility] Vkvupt9403 Iglesias Roadblin [place] [id number] BY: [facility] [address] [id number] Information: 386697,B81557 CO2 molar conc 23 mmol/L Normal 18-29 Comprehens flaquita Internal Medicine Work Phone: Comment on above: PATIENT NOT FASTINGP ERFORMED BY: CB [facility] Uzfsoz9812 [address] [facility] [id number] BY: [facility] [address] [id number] Information: 615994,Y01177 Creatinine mass conc 0.66 mg/dL Normal 0.57-1.00 Comp [facility] Work Phone: Comment on above: PATIENT NOT FASTINGP ERFORMED BY: CB [facility] Rznpva4910 [address] [facility] [id number] BY: [facility] [address] [id number] Information: 003375,K70988 GFR/1.73 sq M predicted among blacks CKD-EPI vol rate/area (S/P/Bld) 122 mL/min/1.73 Normal Comprehensiv e Internal Medicine Work Phone: Comment on above: PATIENT NOT FASTINGP ERFORMED BY: CB [facility] Kbmfwc7304 [address] [facility] [id number] BY: [facility] [address] [id number] Information: 293389,V48189 GFR/1.73 sq M predicted among non-blacks CKD-EPI vol rate/area (S/P/Bld) 106 mL/min/1.73 Normal Comprehe nsive Internal Medicine Work Phone: Comment on above: PATIENT NOT FASTINGP ERFORMED BY: CB [facility] Wvxlkm7431 [facility] [id number] BY: LabCo[address] [id number] Information: 912042,Q30040 Globulin Calculated mass conc (S) 2.6 g/dL Normal 1.5-4.5 [facility] Work Phone: Globulin mass conc (S) 2.6 g/dL Normal 1.5-4.5 [facility] Work Phone: Comment on above: PATIENT NOT FASTINGP ERFORMED BY: [facility] Pjvsqr3372 [facility] [id number] BY: LabCo[address] [id number] Information: 088321,B30805 Glucose mass conc 97 mg/dL Normal 65-99 Compreh ensive Internal Medicine Work Phone: Comment on above: PATIENT NOT FASTINGP ERFORMED BY: [facility] Vzaxxa5797 [facility] [id number] BY: [facility]Co[address] [id number] Information: 605685,M63083 Potassium molar conc 4.4 mmol/L Normal 3.5-5.2 Comp [facility] Work Phone: Comment on above: PATIENT NOT FASTINGP ERFORMED BY: [facility] Cmwwkp7285 [facility] [id number] BY: [facility]Co[address] [id number] Information: 493107,[id number] Protein mass conc 6.9 g/dL Normal 6.0-8.5 Compreh ensive Internal Medicine Work Phone: Comment on above: PATIENT NOT FASTINGP ERFORMED BY: [facility] Phzvlp3662 [facility] [id number] BY: Lab[address] [id number] Information: 661932,I75708 Sodium molar conc 142 mmol/L Normal 134-144 Compreh ensive Internal Medicine Work Phone: Comment on above: PATIENT NOT FASTINGP ERFORMED BY: CB [facility] Tzsqfu7367 [address] [facility] [id number] BY: [facility]Co[address] [id number] Information: 051220,L35389 Urea nitrogen mass conc 9 mg/dL Normal 6-24 C omprehensive Internal Medicine Work Phone: Comment on above: PATIENT NOT FASTINGP ERFORMED BY: CB [facility] Lmtfur3398 [address] [facility] [id number] BY: [facility]Co[address] [id number] Information: 826268,P54677 Urea nitrogen/Creatinine mass ratio 14 mg/mg Normal 9-23 [facility] Work Phone: Comment on above: PATIENT NOT FASTINGP ERFORMED BY: CB [facility] Onntaw6060 [address] [facility] [id number] BY: [facility] [address] [id number] Information: 780009,G31571 Methymalonic Acid, Serum (83 921)on 04-22-2015 Methylmalonate molar conc 126 nmol/L Normal 0-378 [facility] Work Phone: Comment on above: PATIENT NOT FASTINGP ERFORMED BY: CB [facility] Zwyimd8099 [address] [id number] BY: [facility]Co[address] [id number] T3, FREE (TRIDOTHYRONINE) (3 1090)on 04-22-2015 T3 free mass conc 3.4 pg/mL Normal 2.0-4.4 Compreh ensive Internal Medicine Work Phone: Comment on above: PATIENT NOT FASTINGP ERFORMED BY: CB [facility] Vafkiv9573 [address] [facility] [id number] BY: [employer] [id number] T4, FREE (THYROXINE) (16797) on 04-22-2015 T4 free mass conc 1.36 ng/dL Normal 0.82-1.77 Compreh ensive Internal Medicine Work Phone: Comment on above: PATIENT NOT FASTINGP ERFORMED BY: [facility] Fnwxlc9920 [address] [facility] [id number] BY: Lab[address] [id number] TESTOSTERONE FREE (80836)on 04-22-2015 Testosterone Free mass conc 0.3 pg/mL Normal 0.0-4.2 [facility] Work Phone: Comment on above: PATIENT NOT FASTINGP ERFORMED BY: [facility] Rzqwee3228 [facility] [id number] BY: [address] [id number] TSH (37003)on 04-22-2015 Thyrotropin Qn 1.460 {uIU/mL} Normal 0.450-4.500 Compr ehensive Internal Medicine Work Phone: Comment on above: PATIENT NOT FASTINGP ERFORMED BY: TO [facility] Ujrhrc8763 [facility] [id number] BY: Lab[address] [id number] VITAMIN B12 AND FOLATES (826 07)on 04-22-2015 Cobalamin (Vitamin B12) mass conc 1290 pg/mL Abnormal 211-946 [facility] Work Phone: Comment on above: PATIENT NOT FASTINGP ERFORMED BY: CB [facility] Lhfxlo4630 [address] [facility] [id number] BY: Lab[address] [id number] Folate mass conc ng/mL Normal Comprehe nsive Internal Medicine Work Phone: Comment on above: A serum folate jasmin ntration of less than 3.1 ng/mL isconsidered to represent clinical deficiency. PATIENT NOT FASTINGP ERFORMED BY: CB [facility] Zkvfri5977 [facility] [id number] BY: BN [facility] Vjwvelpayx8023 [facility] [id number] Vital Signs Date Time Vital Sign Value Performing Clinician Facility 12-25-2024 13:30-0400 Body height 170.[address] Jc Scales MD Work Phone: [phone])[phone] [place] [address] 12-25-2024 13:30-0400 Body mass index (BMI) [Ratio] 24.7 kg/m2 Dr. Jc Scales MD Work Phone: 2(950)[phone] [place] [address] 12-25-2024 13:30-0400 Body weight 71.[address] Jc Scales MD Work Phone: 9(537)015-635322 [place] [address] 12-25-2024 13:30-0400 Diastolic blood pressure 81 mm[Hg] Dr. Jc Scales MD Work Phone: 4(289)[phone] [place] [address] 12-25-2024 13:30-0400 Systolic blood pressure 130 mm[Hg] Dr. Jc Scales MD Work Phone: 1(466)211-270929 [place] [address] 12-24-2024 13:25-0400 Body height 170.[address] Jc Scales MD Work Phone: 0(127)[phone] [place] [address] 12-24-2024 13:25-0400 Body mass index (BMI) [Ratio] 24.8 kg/m2 Dr. Jc Scales MD Work Phone: 5([phone])[phone] [place] [address] 12-24-2024 13:25-0400 Body temperature 98.2 [degF] Dr. Jc Scales MD Work Phone: 2(229)[phone] [place] [address] 12-24-2024 13:25-0400 Body weight 71.[address] Jc Scales MD Work Phone: 6(168)207-190829 [place] [address] 12-24-2024 13:25-0400 Diastolic blood pressure 78 mm[Hg] Dr. Jc Scales MD Work Phone: [facility] 12-24-2024 13:25-0400 Heart rate 80 /min Dr. Jc Scales MD Work Phone: [facility] 12-24-2024 13:25-0400 Respiratory rate 16 /min Dr. Jc Scales MD Work Phone: [facility] 12-24-2024 13:25-0400 SaO2% (BldA) [Mass fraction] 97 % Dr. Jc Scales MD Work Phone: [facility] 12-24-2024 13:25-0400 Systolic blood pressure 110 mm[Hg] Dr. Jc Scales MD Work Phone: [facility] 08-29-2018 08:30-0500 BMI (Body Mass Index) 24.91 kg/m2 [facility] Internal Medicine Work Phone: 08-29-2018 08:30-0500 BP Diastolic 78 mm[Hg] [facility] Internal Medicine Work Phone: Comment on above: Patient Position: Sitting; Cuff Location : Left Arm; Cuff Size: Standard 08-29-2018 08:30-0500 BP Systolic 120 mm[Hg] [facility] Internal Medicine Work Phone: Comment on above: Patient Position: Sitting; Cuff Location : Left Arm; Cuff Size: Standard 08-29-2018 08:30-0500 BSA (Body Surface Area) 1.83 m2 [facility] Work Phone: 08-29-2018 08:30-0500 Height 170.18 cm Sep[facility] Internal Medicine Work Phone: 08-29-2018 08:30-0500 Pulse (Heart Rate) 74 /min [facility] Internal Medicine Work Phone: Comment on above: Pattern: Regular 08-29-2018 08:30-0500 Pulse Oximetry 98 % Sepidehfatemeh [facility] Work Phone: Comment on above: Room air 08-29-2018 08:30-0500 Respiratory Rate 18 /min Sep[facility] Work Phone: Comment on above: Pattern: Unlabored 08-29-2018 08:30-0500 Weight 72.14 kg [facility] Work Phone: 07-31-2018 10:56-0500 BMI (Body Mass Index) 23.34 kg/m2 [facility] Work Phone: 07-31-2018 10:56-0500 Body Temperature 97.6 [degF] [facility] Work Phone: Comment on above: Method: Temporal 07-31-2018 10:56-0500 BP Diastolic 78 mm[Hg] [facility] Work Phone: Comment on above: Patient Position: Sitting; Cuff Location : Left Arm; Cuff Size: Large 07-31-2018 10:56-0500 BP Systolic 118 mm[Hg] Sep[facility]h [facility] Internal Medicine Work Phone: Comment on above: Patient Position: Sitting; Cuff Location : Left Arm; Cuff Size: Large 07-31-2018 10:56-0500 BSA (Body Surface Area) 1.78 m2 [facility] Work Phone: 07-31-2018 10:56-0500 Height 170.18 cm [facility] Work Phone: 07-31-2018 10:56-0500 Pulse (Heart Rate) 83 /min [facility] Work Phone: Comment on above: Pattern: Regular 07-31-2018 10:56-0500 Pulse Oximetry 98 % [facility] Work Phone: Comment on above: Room air 07-31-2018 10:56-0500 Respiratory Rate 18 /min [facility] Work Phone: Comment on above: Pattern: Unlabored 07-31-2018 10:56-0500 Weight 67.59 kg [facility] Work Phone: 05-12-2017 11:06-0500 BMI (Body Mass Index) 23.34 kg/m2 [facility] Work Phone: 05-12-2017 11:06-0500 Body Temperature 98 [degF] [facility] Work Phone: Comment on above: Method: Temporal 05-12-2017 11:06-0500 BP Diastolic 70 mm[Hg] [facility] Work Phone: Comment on above: Patient Position: Sitting; Cuff Location : Left Arm; Cuff Size: Standard 05-12-2017 11:06-0500 BP Systolic 122 mm[Hg] [facility] Work Phone: Comment on above: Patient Position: Sitting; Cuff Location : Left Arm; Cuff Size: Standard 05-12-2017 11:06-0500 BSA (Body Surface Area) 1.78 m2 [facility] Work Phone: 05-12-2017 11:06-0500 Height 170.18 cm Sepideh [facility] Internal Medicine Work Phone: 05-12-2017 11:06-0500 Pulse (Heart Rate) 90 /min Sep[facility] Internal Medicine Work Phone: Comment on above: Pattern: Regular 05-12-2017 11:06-0500 Pulse Oximetry 99 % Sep[facility] Internal Medicine Work Phone: Comment on above: Room air 05-12-2017 11:06-0500 Respiratory Rate 17 /min [facility] Work Phone: Comment on above: Pattern: Unlabored 05-12-2017 11:06-0500 Weight 67.59 kg Sep[facility] Internal Medicine Work Phone: 04-15-2016 10:15-0400 BMI (Body Mass Index) 22.63 kg/m2 [facility] Work Phone: 04-15-2016 10:15-0400 Body Temperature 97.4 [degF] [facility] Work Phone: Comment on above: Method: Temporal 04-15-2016 10:15-0400 BP Diastolic 78 mm[Hg] [facility] Work Phone: Comment on above: Patient Position: Sitting; Cuff Location : Left Arm; Cuff Size: Standard 04-15-2016 10:15-0400 BP Systolic 118 mm[Hg] [facility] Work Phone: Comment on above: Patient Position: Sitting; Cuff Location : Left Arm; Cuff Size: Standard 04-15-2016 10:15-0400 BSA (Body Surface Area) 1.76 m2 [facility] Work Phone: 04-15-2016 10:15-0400 Height 170.18 cm [facility] Work Phone: 04-15-2016 10:15-0400 Pulse (Heart Rate) 86 /min [facility] Work Phone: Comment on above: Pattern: Regular 04-15-2016 10:15-0400 Pulse Oximetry 98 % [facility] Work Phone: Comment on above: Room air 04-15-2016 10:15-0400 Respiratory Rate 18 /min [facility] Work Phone: Comment on above: Pattern: Unlabored 04-15-2016 10:15-0400 Weight 65.55 kg [facility] Work Phone: 11-12-2015 08:56-0400 BMI (Body Mass Index) 22.63 kg/m2 [facility] Work Phone: 11-12-2015 08:56-0400 BP Diastolic 80 mm[Hg] [facility] Work Phone: Comment on above: Patient Position: Sitting; Cuff Location : Left Arm; Cuff Size: Standard 11-12-2015 08:56-0400 BP Systolic 118 mm[Hg] Sep[facility] Internal Medicine Work Phone: Comment on above: Patient Position: Sitting; Cuff Location : Left Arm; Cuff Size: Standard 11-12-2015 08:56-0400 BSA (Body Surface Area) 1.76 m2 [facility] Internal Medicine Work Phone: 11-12-2015 08:56-0400 Height 170.18 cm [facility] Internal Medicine Work Phone: 11-12-2015 08:56-0400 Pulse (Heart Rate) 79 /min [facility] Internal Medicine Work Phone: Comment on above: Pattern: Regular 11-12-2015 08:56-0400 Pulse Oximetry 98 % [facility] Internal Medicine Work Phone: Comment on above: Room air 11-12-2015 08:56-0400 Respiratory Rate 18 /min [facility] Internal Medicine Work Phone: Comment on above: Pattern: Unlabored 11-12-2015 08:56-0400 Weight 65.55 kg [facility] Internal Medicine Work Phone: 09-10-2015 08:03-0500 BMI (Body Mass Index) 22.4 kg/m2 [facility] Internal Medicine Work Phone: 09-10-2015 08:03-0500 BP Diastolic 78 mm[Hg] [facility] Internal Medicine Work Phone: Comment on above: Patient Position: Sitting; Cuff Location : Left Arm; Cuff Size: Large 09-10-2015 08:03-0500 BP Systolic 104 mm[Hg] [facility] Internal Medicine Work Phone: Comment on above: Patient Position: Sitting; Cuff Location : Left Arm; Cuff Size: Large 09-10-2015 08:03-0500 BSA (Body Surface Area) 1.75 m2 [facility] Internal Medicine Work Phone: 09-10-2015 08:03-0500 Height 170.18 cm [facility] Work Phone: 09-10-2015 08:03-0500 Pulse (Heart Rate) 91 /min [facility] Work Phone: Comment on above: Pattern: Regular 09-10-2015 08:03-0500 Pulse Oximetry 97 % [facility] Work Phone: Comment on above: Room air 09-10-2015 08:03-0500 Respiratory Rate 18 /min [facility] Work Phone: Comment on above: Pattern: Unlabored 09-10-2015 08:03-0500 Weight 64.86 kg [facility] Work Phone: 08-06-2015 08:29-0500 BMI (Body Mass Index) 22.48 kg/m2 [facility] Work Phone: 08-06-2015 08:29-0500 BP Diastolic 72 mm[Hg] [facility] Work Phone: Comment on above: Patient Position: Sitting; Cuff Location : Left Arm; Cuff Size: Large 08-06-2015 08:29-0500 BP Systolic 122 mm[Hg] [facility] Work Phone: Comment on above: Patient Position: Sitting; Cuff Location : Left Arm; Cuff Size: Large 08-06-2015 08:29-0500 BSA (Body Surface Area) 1.76 m2 [facility] Work Phone: 08-06-2015 08:29-0500 Height 170.18 cm [facility] Work Phone: 08-06-2015 08:29-0500 Pulse (Heart Rate) 92 /min [facility] Work Phone: Comment on above: Pattern: Regular 08-06-2015 08:29-0500 Pulse Oximetry 98 % [facility] Work Phone: Comment on above: Room air 08-06-2015 08:29-0500 Respiratory Rate 18 /min [facility] Work Phone: Comment on above: Pattern: Unlabored 08-06-2015 08:29-0500 Weight 65.09 kg [facility] Work Phone: 06-17-2015 11:34-0500 BMI (Body Mass Index) 23.36 kg/m2 [facility] Work Phone: 06-17-2015 11:34-0500 BP Diastolic 64 mm[Hg] [facility] Work Phone: Comment on above: Patient Position: Sitting; Cuff Location : Left Arm; Cuff Size: Large 06-17-2015 11:34-0500 BP Systolic 110 mm[Hg] [facility] Work Phone: Comment on above: Patient Position: Sitting; Cuff Location : Left Arm; Cuff Size: Large 06-17-2015 11:34-0500 BSA (Body Surface Area) 1.79 m2 [facility] Work Phone: 06-17-2015 11:34-0500 Height 170.18 cm [facility] Work Phone: 06-17-2015 11:34-0500 Pulse (Heart Rate) 73 /min [facility] Work Phone: Comment on above: Pattern: Regular 06-17-2015 11:34-0500 Pulse Oximetry 99 % [facility] Work Phone: Comment on above: Room air 06-17-2015 11:34-0500 Respiratory Rate 18 /min [facility] Work Phone: Comment on above: Pattern: Unlabored 06-17-2015 11:34-0500 Weight 67.64 kg [facility] Medicine Work Phone: 05-06-2015 11:35-0500 BMI (Body Mass Index) 23.98 kg/m2 Sepideh Amador [facility] Medicine Work Phone: 05-06-2015 11:35-0500 BP Diastolic 76 mm[Hg] Sepideh Stover [facility] Internal Medicine Work Phone: Comment on above: Patient Position: Sitting; Cuff Location : Left Arm; Cuff Size: Large 05-06-2015 11:35-0500 BP Systolic 118 mm[Hg] Sepideh Stover [facility] Work Phone: Comment on above: Patient Position: Sitting; Cuff Location : Left Arm; Cuff Size: Large 05-06-2015 11:35-0500 BSA (Body Surface Area) 1.81 m2 Sepideh Stover [facility] Internal Medicine Work Phone: 05-06-2015 11:35-0500 Height 170.18 cm Sepideh Stover [facility] Medicine Work Phone: 05-06-2015 11:35-0500 Pulse (Heart Rate) 76 /min Sepideh Stover [facility] Internal Medicine Work Phone: Comment on above: Pattern: Regular 05-06-2015 11:35-0500 Pulse Oximetry 98 % Sepideh Stover [facility] Internal Medicine Work Phone: Comment on above: Room air 05-06-2015 11:35-0500 Respiratory Rate 18 /min Sepideh Stover [facility] Internal Medicine Work Phone: Comment on above: Pattern: Unlabored 05-06-2015 11:35-0500 Weight 69.46 kg Sepideh Amaodr Internal Medicine Work Phone: 04-22-2015 10:53-0400 BMI (Body Mass Index) 24.18 kg/m2 Sepideh Stover [facility] Internal Medicine Work Phone: 04-22-2015 10:53-0400 BP Diastolic 76 mm[Hg] Sepideh Stover [facility] Internal Medicine Work Phone: Comment on above: Patient Position: Sitting; Cuff Location : Left Arm; Cuff Size: Large 04-22-2015 10:53-0400 BP Systolic 120 mm[Hg] Sepideh Stover [facility] Work Phone: Comment on above: Patient Position: Sitting; Cuff Location : Left Arm; Cuff Size: Large 04-22-2015 10:53-0400 BSA (Body Surface Area) 1.81 m2 Sepideh Amador [facility] Work Phone: 04-22-2015 10:53-0400 Height 170.18 cm Sepideh Stover [facility] Internal Medicine Work Phone: 04-22-2015 10:53-0400 Pulse (Heart Rate) 73 /min Sepideh Stover [facility] Work Phone: Comment on above: Pattern: Regular 04-22-2015 10:53-0400 Pulse Oximetry 99 % Sepideh Stover [facility] Internal Medicine Work Phone: Comment on above: Room air 04-22-2015 10:53-0400 Respiratory Rate 18 /min Sepideh Stover [facility] Internal Medicine Work Phone: Comment on above: Pattern: Unlabored 04-22-2015 10:53-0400 Weight 70.02 kg Sepideh Stover [facility] Internal Medicine Work Phone: Encounters Encounter Date Encounter Type Care Provider Facility Start: 01-17-2025 [facility] Start: 01-06-2025 End: 01-06-[address] Jc Scales MD Work Phone: -Radiology [place] Start: 01-06-2025 End: 01-06-2025 Patient encounter procedure Jenn Ferrari GED INSTRUCTOR-C -Radiology [place] Work Phone: Start: 01-06-2025 End: 01-06-2025 ambulatory Jenn Ferrari NP Facility:[facility] Start: 12-25-2024 End: 12-25-[address] Jc Scales MD Work Phone: -Laboratory Specimen Start: 12-25-2024 End: 12-25-2024 Patient encounter procedure Jyoti Hermosillo GED INSTRUCTOR-C -Laboratory Specimen Work Phone: Start: 12-25-2024 End: 12-25-2024 Patient encounter procedure Jyoti FRITZ -[facility] Work Phone: Start: 12-25-2024 End: 12-25-2024 Patient encounter status Jyoti FRITZ [facility] Start: 12-25-2024 End: 12-25-[address] Jc Scales MD Work Phone: [facility] Work Phone: Start: 12-24-2024 End: 12-24-2024 Patient encounter procedure Earl Burton [place] -[facility] Work Phone: Start: 12-24-2024 End: 12-25-[address] Jc Scales MD Work Phone: [facility] Work Phone: Start: 12-24-2024 End: 12-24-2024 ambulatory Jc Scales Facility:[facility] Start: 11-04-2024 End: 11-04-[address] Jc Scales MD Work Phone: [facility] Work Phone: Start: 11-04-2024 End: 11-04-[address] Jc Scales MD -[facility] Work Phone: Start: 11-04-2024 End: 11-04-2024 ambulatory Jc Scales Facility:[facility] Start: 08-01-2024 End: 08-01-[address] Jc Scales MD -Outpatient Bone Densitometry Work Phone: Start: 08-01-2024 End: 08-01-2024 ambulatory Jc Scales Facility:[facility] Start: 06-28-2024 End: 06-28-2024 ambulatory Jc Scales Facility:[facility] Start: 08-29-2018 End: 08-29-2018 Office outpatient visit 15 minutes Sepideh Stover [facility] Medicine Start: 08-29-2018 Review Sepideh Stover [facility] Internal Medicine Start: 08-07-2018 End: 08-07-2018 Annotation/Addendum Sepideh Stover [facility] [employer] Medicine Start: 08-06-2018 End: 08-06-2018 Phone Encounter Sepideh Stover [facility] [employer] [facility] Start: 07-31-2018 Patient encounter procedure Sepideh Stover [facility] Start: 07-31-2018 End: 07-31-2018 Office outpatient visit 15 minutes Sepidehryan Alejandreon [facility] Internal Medicine Start: 05-12-2017 End: 05-14-2017 Office outpatient visit 15 minutes Sepideh Stover [facility] Medicine Start: 04-18-2016 End: 04-18-2016 Phone Encounter Sepideh Stover [facility] [employer] [facility] Medicine Start: 04-15-2016 End: 04-15-2016 Office outpatient visit 15 minutes Sepideh Stover [facility] Medicine Start: 11-12-2015 End: 11-12-2015 Office outpatient visit 15 minutes Sepideh Stover [facility] Start: 09-10-2015 End: 09-14-2015 Office outpatient visit 15 minutes Sepideh Stover [facility] Start: 08-06-2015 End: 08-06-2015 Office outpatient visit 25 minutes Sepideh Stover [facility] Start: 06-17-2015 End: 06-17-2015 Office outpatient visit 25 minutes Sepideh Stover [facility] Start: 05-06-2015 End: 05-06-2015 Office outpatient visit 25 minutes Sepideh Stover [facility] Start: 04-22-2015 End: 04-22-2015 Office outpatient visit 15 minutes Sepidehryan Stover [facility] Procedures Date Procedure Procedure Detail Performing Clinician Start: 01-06-2025 Plain x-ray of pelvi s and lower extremity Dr. Jc Scales MD Work Phone: Start: 12-25-2024 Liquid based cervica l cytology screening Dr. Jc Scales MD Work Phone: Comment on above: NEGATIVE FOR INTRAEP ITHELIAL LESION OR MALIGNANCY.CELLULAR CHANGES ASSOCIATED WITH ATROPHY ARE PRESENT. This liquid based Th inPrep(R) pap test was screened withthe use of an image guided system. Start: 12-24-2024 X-ray of lumbar spin e, two or three views Dr. Jc Scales MD Work Phone: Start: 11-04-[address] Jc Scales MD Work Phone: Start: 11-04-[address] Jc Scales MD Work Phone: Start: 11-04-2024 Serum inorganic phos phate measurement Dr. Jc Scales MD Work Phone: Start: 11-04-2024 Vitamin D, 25-hydrox y measurement Dr. Jc Scales MD Work Phone: Comment on above: Vitamin D StatusDefi ciency: <20 ng/mL (50nmol/L)Insufficiency: 20-30 ng/mL (50-75 nmol/L)Sufficiency: 30-100 ng/mL (75-250 nmol/L)Toxicity: >100 ng/mL (>250 nmol/L) Start: 08-01-2024 Dual energy X-ray absorptiometry Dr. Jc Scales MD Work Phone: Start: 08-01-2024 Screening mammography Ambika Scales MD Work Phone: Start: 08-14-2018 End: 08-15-2018 Dexa Bone Density Study Comments: See Note; NOTES: [facility] Imaging Services [address] [place] [id number] Dexa Bone Density Study MR#: [id number] Acct: [id number] Name: BENJAMÍN LEUNG Rep #: [id number] : 1965 F 52 From: Conner Becker MD PCP: Sepideh Stover DO Status: REG CLI Study: Dexa Bone Density Study Date of Exam: 08/14/18 Exam# [id number] Ordering Dr: Sepideh Stover DO STUDY: DUAL ENERGY X-RAY ABSORPTIOMETRY / DXA REASON FOR EXAM: Female, 52 years old. The patient's postmenopausal. Loss of height. TECHNIQUE: Bone Mineral Density (BMD) measurements of lumbar spine and bilateral hips were obtained. COMPARISON: None. FINDINGS: Lumbar Spine (L1-L4): g/cm2 (0.913) / T-score (-2.2) / Z-score (-1.8) Findings are suggestive of osteopenia with a moderate fracture risk. Increased thoracic kyphosis. Left Femur Total: g/cm2 (0.808) / T-score (-1.6) / Z-score (-1.1) Left Femoral Neck: g/cm2 (0.836) / T-score (-1.5) / Z-score (-0.6) Right Femur Total: g/cm2 (0.846) / T-score (-1.3) / Z-score (-0.8) Right Femoral Neck: g/cm2 (0.864) / T-score (-1.3) / Z-score (-0.4) BD/Dexa Bone Density Study IMPRESSION: The patient is considered osteopenic as outlined below according to World [employer]avo Organization (WHO) criteria with a moderate fracture risk. Reference Information: The T-score is the number of standard deviations above or below the standard which is normal for young adults at their peak bone mineral density. The World Health Organization (WHO) interprets the T-scores as follows: Above -1 Normal bone density Between -1 and -2.5 Osteopenia Equal to / or below -2.5 Osteoporosis As a practical clinical guideline, osteopenia may be graded as follows: Mild -1 through -1.5 Moderate -1.6 through -2.0 Severe -2.1 through -2.4 The Z-score is the number of standard deviations above or below age-matched controls. A Z-score of less than -1.5 would be considered abnormal. References: 1. NIH Osteoporosis and Related Bone Diseases http://www.osteo.org 2. International Society for Clinical Densitometry http://www.iscd.org 3. National Osteoporosis Foundation http://www.nof.org Electronically Signed: Conner Becker MD at 12:44 EST , Service support , CC: Sepideh Stover DO Web Applications Administrator: Signed Sepideh Stover Work Phone: Start: 05-15-2017 End: 05-16-2017 SCREENING MAMM (CAD), BILAT Comments: See Note; NOTES: [facility] Imaging Services [address] [place] [address] SCREENING MAMM (CAD), BILAT MR#: [id number] Acct: [id number] Name: BENJAMÍN LEUNG Rep #: [id number] : 1965 F 51 From: Conner Becker MD PCP: Sepideh Stover DO Status: REG CLI Study: SCREENING MAMM (CAD), BILAT Date of Exam: 05/15/17 Exam# [id number] Ordering Dr: Danyel Moreno MD MAMMOGRAPHY - BILATERAL SCREENING REASON FOR EXAM: Female, 51 years old. Routine annual screening examination. PERTINENT HISTORY: Non-contributory. TECHNIQUE: Digital bilateral breast douglas (3D mammographic acquisition) in the CC and MLO projections. 2-D mediolateral oblique (MLO) and craniocaudad (CC) views of both breasts were obtained. CAD: Full Field Digital Mammography with Computer Added Detection was performed. COMPARISON: Comparison is made with prior study dated May 12, 2016 and December 30, 2014. FINDINGS: Breast Composition: The breasts are extremely dense, which lowers the sensitivity of mammography. There are no dominant masses or suspicious calcifications. No other significant abnormalities are identified. There has been no significant change since the prior study. HPBI/SCREENING MAMM (CAD), BILAT IMPRESSION: Stable bilateral screening mammogram. Yearly follow-up mammogram recommended. (A) ASSESSMENT CATEGORY: BIRADS Category 1: Negative. A letter regarding these results will be sent to the patient by the facility within 30 days. Approximately 10% of breast cancers are not detected by mammography. A normal mammogram should not delay biopsy of a clinically suspicious abnormality. [id number] Electronically Signed: Conner Becker MD at 8:56 EST Tel [phone], Service support , CC: Danyel Moreno MD; Sepideh Stover DO Web Applications Administrator: Signed Sepideh Stover Start: 05-12-2016 End: 05-12-2016 Bilat Scrn Digital AND CAD Comments: See Note; NOTES: [facility] Imaging Services [address] [place] [address] Verdana 4d Bilat Scrn Digital AND CAD MR#: [id number] Acct: [id number] Name: BENJAMÍN LEUNG Rep #: [id number] : 1965 F 50 From: Conner Becker MD PCP: Sepideh Stover DO Status: REG CLI Study: Bilat Scrn Digital AND CAD Date of Exam: 05/12/16 Exam# [id number] Ordering Dr: Danyel Moreno MD MAMMOGRAPHY - BILATERAL SCREENING REASON FOR EXAM: Female, 50 years old. Routine annual screening examination. PERTINENT HISTORY: Non-contributory. TECHNIQUE: Digital bilateral breast douglas (3D mammographic acquisition) in the CC and MLO projections. 2-D mediolateral oblique (MLO) and craniocaudad (CC) views of both breasts were obtained. CAD: Full Field Digital Mammography with Computer Added Detection was performed. COMPARISON: Comparison is made with prior study dated December 30, 2014. FINDINGS: Breast Composition: The breasts are extremely dense, which lowers the sensitivity of mammography. There are no dominant masses or suspicious calcifications. No other significant abnormalities are identified. There has been no significant change since the prior study. HPBI/Bilat Scrn Digital AND CAD IMPRESSION: Stable bilateral screening mammogram. Yearly follow-up mammogram recommended. (A) ASSESSMENT CATEGORY: BIRADS Category 1: Negative. A letter regarding these results will be sent to the patient by the facility within 30 days. Approximately 10% of breast cancers are not detected by mammography. A normal mammogram should not delay biopsy of a clinically suspicious abnormality. [id number] Electronically Signed: Conner Becker MD at 13:40 EST Tel [phone], Service support [phone], CC: Danyel Moreno MD; Sepideh Stover DO Web Applications Administrator: Signed Sepideh Stover Ligation of fallopia n tube Shoshana Acevedo Comment on above: 09/29/00 Ligation of fallopia n tube Juliette Martell Comment on above: 09/29/00 Ligation of fallopia n tube Alex Scott Comment on above: 09/29/00 Microscopic examinat ion of cervical Papanicolaou smear Shoshana Acevedo Comment on above: 12/15 Microscopic examinat ion of cervical Papanicolaou smear Juliette Martell Comment on above: 12/15 Microscopic examinat ion of cervical Papanicolaou smear Alex Scott Comment on above: 12/15 Ophthalmic examinati on and evaluation Shoshana Acevedo Comment on above: fall 2013 Ophthalmic examinati on and evaluation Juliette Martell Comment on above: fall 2013 Ophthalmic examinati on and evaluation Alex Scott Comment on above: fall 2013 Varicose vein ligati on and stripping Shoshana Acevedo Comment on above: 2003 Varicose vein ligati on and stripping Juliette Martell Comment on above: 2003 Varicose vein ligati on and stripping Alex Scott Comment on above: 2003 Plan of Treatment Date Care Activity Detail Author Start: 12-25-2024 Liquid based cervical cytology screening [facility] Start: 08-06-2018 Ova&parasites direct smears concentration & id OVA & PARASITE DIR SMEAR (80355) [facility] Work Phone: Start: 08-06-2018 Blood occult peroxidase actv qual feces 1 deter OCCULT BLOOD FECES SCREEN (43758) [facility] Work Phone: Start: 08-06-2018 Leukocyte assmt fecal qual/semiquantitative LEUKOCYTE COUNT, FECAL (06170) [facility] Work Phone: Start: 08-06-2018 Iaad ia clostridium difficile toxin Clostridium difficile Toxin A+B, EIA (69400) [facility] Work Phone: Start: 08-06-2018 Cul bact stool aerobic isol salmonella&shigell ELIANE CULTURE-STOOL (01521) [facility] Work Phone: Start: 07-31-2018 Blood count complete auto&auto difrntl wbc CBC W/AUTO DIFF WBC (29363) [facility] Work Phone: Start: 07-31-2018 Antibody edy-almazan eb virus early antigen ea EBV Panel (87574) [facility] Work Phone: Start: 07-31-2018 Comprehensive metabolic panel METABOLIC PANEL, COMPREHENSIVE (28889) [facility] Work Phone: Cytology report of Cervical or vaginal smear or scraping Cyto stain.thin prep [facility] MG Breast - bilatera l Screening [facility] Path report.final Dx Spec [facility] Work Phone: Migraine with au ra and with status migrainosus, not intractable : Migraine Headache: Brief Version *: head [facility] Work Phone: [facility] Work Phone: [facility] Work Phone: Immunizations Immunization Date Immunization Notes Care Provider Fa cilimechelle 05-24-2021 Covid (Pfizer) Dr. Alfie Scales MD Work Phone: [facility] 10-09-2020 Covid (Pfizer) Dr. Alfie Scales MD Work Phone: [facility] 09-18-2020 Covid (Pfizer) Dr. Alfie Scales MD Work Phone: [facility] 04-22-2020 influenza, injectable,quadrivalen t, preservative free, pediatric Dr. Jc Scales MD Work Phone: [facility] Payers Date Payer Category Payer Self-pay 2018 Unknown [id number] 1965 Unknown [id number] 2.16.84 [id number] Unknown [place] [employer]/BS Unknown [id number] 2.16.8 [id number] Unknown [id number] 2.16.8 [id number] Unknown [id number] 2.16.8 [id number] Unknown [id number] 2.16.8 [id number] Unknown [id number] 2.16.8 [id number] Unknown [id number] 2.16.8 [id number] Unknown [id number] 2.16.8 [id number] Unknown [id number] 2.16.8 [id number] Unknown [id number] 2.16.8 [id number] Social History Date Type Detail Facility Alcohol Use: Never smoker [facility] Work Phone: Caffeine Use [facility] Work Phone: Comment on above: qd Exercise History: Exercises regularly. [facility] Work Phone: Living Situation: Lives with spouse. [facility] Work Phone: Number of Child (age 0-17) Dependents: 2. [facility] Work Phone: Pets/Animals: Dog. Cat. [facility] Work Phone: Tobacco use: Never smoker. [facility] Work Phone: Start: 09-24-2024 End: 12-25-2024 Tobacco smoking status NHIS Never smoked tobacco (finding) [facility] Start: 05-05-2020 Tobacco Use Tobacco Use [facility] Start: 1965 Sex Assigned At Female W [facility] Radiology Diagnostic study note 01-06-2025 Note Date & Type Note Facility 01-06-2025 Radiology Diagnostic study note [facility] Imaging Services [address] [place], [place] [address] HIP, UNI W/ Pelvis 2-3 Views MR#: [id number] Acct: [id number] Name: BENJAMÍN LEUNG Rep #: [id number] : 1965 F 59 From: Rashi Hale MD PCP: Dr. Jc Scales MD Status: REG CLI Study:HIP, UNI W/ Pelvis 2-3 Views Date of Ex am: 01/06/25 Exam# [id number] Ordering Dr: iMgel Ferrari GED INSTRUCTOR GED INSTRUCTOR-C PROCEDURE: HIP, UNI W/ PELVIS 2-3 VIEWS 01/06/2025 REASON FOR EXAM: PAIN TECHNIQUE: Four view right hip to include the AP pelvis COMPARISON: Lumbar spine series of 12/24/2024. RAD/HIP, UNI W/ Pelvis 2-3 Views IMPRESSION: Sacroiliac joints appear within the normal range for age. Minimal degenerative changes are seen of the hip joints, without joint narrowingappreciated. No evidence of femoral head osteonecrosis. No acute fracture or dislocation is seen. Reading Location: [address] CC: GED INSTRUCTOR-C Jenn Ferrari; Dr. Jc Scales MD ~ Web Applications Administrator: Signed [facility] Evaluation note 12-24-2024 Note Date & Type Note Facility 12-24-2024 Evaluation note Diagnosis Onset Date Resolution Low back pain acute December 24, 2024 12:53pm Quadriceps strain acute December 242024 12:53pm Encounter for routine gynecological examination noneactive December 25, 2024 1:26pm [facility] Work Phone: Radiology Diagnostic study note 12-24-2024 Note Date & Type Note Facility 12-24-2024 Radiology Diagnostic study note [facility] Imaging Services [address] [place] [address] Lumbar Spine 2 or 3 Views MR#: [id number] Acct: [id number] Name: BENJAMÍN LEUNG Rep #: [id number] : 1965 F 59 From: Rashi Hale MD PCP: Dr. Jc Scales MD Status: REG CLI Study:Lumbar Spine 2 or 3 Views Date of Exam: 12/24/24 Exam# [id number] Ordering Dr: [facility] PROCEDURE: LUMBAR SPINE 2 OR 3 VIEWS 12/24/2024 REASON FOR EXAM: PAIN TECHNIQUE: LUMBAR SPINE 2 OR 3 VIEWS COMPARISON: None. RAD/Lumbar Spine 2 or 3 Views IMPRESSION: Mild bilateral sacroiliac joint degenerative changes are seen. Mild degenerative changes of the lumbar spine are noted, without significant disc space narrowing noted. Lower lumbar posterior facet hypertrophy is seen. No evidence of spondylolysis or spondylolisthesis. No fracture site is seen. Reading Location: [place] [address] CC: Dr. Jc Scales MD; ZOYA Centeno ~ Web Applications Administrator: Signed [facility] Evaluation note Note Date & Type Note Facility Evaluation note No assessment information availa ble [facility] Work Phone: Reason for referral (narrative) Note Date & Type Note Facility Reason for referral (narrative) No reason for referral information available [facility] Work Phone: Instructions Name Dates Details Non-smoker : How to access h ealth information online Indication:Non-smoker Non-smoker : How to access h ealth information online - Detail Indication:Non-smoker Non-smoker : Patient Instruc tions Indication:Non-smoker Migraine with aura and with status migrainosus, not intractable : How to access health information online - Detail Indication:Migraine with aura and with status migrainosus, not intractable Migraine with aura and with status migrainosus, not intractable : Patient Instructions Indication:Migraine with aura and with status migrainosus, not intractable Night sweats : How to access health information online Indication:Night sweats Night sweats : How to access health information online - Detail Indication:Night sweats Night sweats : Patient Instr uctions Indication:Night sweats Hair loss : Patient Instruct ions Indication:Hair loss Name Dates Details Cough : How to access health information online Indication:Cough Cough : How to access health information online - Detail Indication:Cough Cough : Patient Instructions Indication:Cough Non-smoker : How to access h ealth information online Indication:Non-smoker Non-smoker : How to access h ealth information online - Detail Indication:Non-smoker Non-smoker : Patient Instruc tions Indication:Non-smoker Migraine with aura and with status migrainosus, not intractable : How to access health information online - Detail Indication:Migraine with aura and with status migrainosus, not intractable Migraine with aura and with status migrainosus, not intractable : Patient Instructions Indication:Migraine with aura and with status migrainosus, not intractable Night sweats : How to access health information online Indication:Night sweats Night sweats : How to access health information online - Detail Indication:Night sweats Night sweats : Patient Instr uctions Indication:Night sweats Hair loss : Patient Instruct ions Indication:Hair loss Name Dates Details Cough : How to access health information online Indication:Cough Cough : How to access health information online - Detail Indication:Cough Cough : Patient Instructions Indication:Cough Non-smoker : How to access h ealth information online Indication:Non-smoker Non-smoker : How to access h ealth information online - Detail Indication:Non-smoker Non-smoker : Patient Instruc tions Indication:Non-smoker Migraine with aura and with status migrainosus, not intractable : How to access health information online - Detail Indication:Migraine with aura and with status migrainosus, not intractable Migraine with aura and with status migrainosus, not intractable : Patient Instructions Indication:Migraine with aura and with status migrainosus, not intractable Night sweats : How to access health information online Indication:Night sweats Night sweats : How to access health information online - Detail Indication:Night sweats Night sweats : Patient Instr uctions Indication:Night sweats Hair loss : Patient Instruct ions Indication:Hair loss Name Dates Details Cough : How to access health information online Indication:Cough Cough : How to access health information online - Detail Indication:Cough Cough : Patient Instructions Indication:Cough Non-smoker : How to access h ealth information online Indication:Non-smoker Non-smoker : How to access h ealth information online - Detail Indication:Non-smoker Non-smoker : Patient Instruc tions Indication:Non-smoker Migraine with aura and with status migrainosus, not intractable : How to access health information online - Detail Indication:Migraine with aura and with status migrainosus, not intractable Migraine with aura and with status migrainosus, not intractable : Patient Instructions Indication:Migraine with aura and with status migrainosus, not intractable Night sweats : How to access health information online Indication:Night sweats Night sweats : How to access health information online - Detail Indication:Night sweats Night sweats : Patient Instr uctions Indication:Night sweats Hair loss : Patient Instruct ions Indication:Hair loss Name Dates Details Non-smoker : How to access h ealth information online Indication:Non-smoker Non-smoker : How to access h ealth information online - Detail Indication:Non-smoker Non-smoker : Patient Instruc tions Indication:Non-smoker Cough : How to access health information online Indication:Cough Cough : How to access health information online - Detail Indication:Cough Cough : Patient Instructions Indication:Cough Migraine with aura and with status migrainosus, not intractable : How to access health information online - Detail Indication:Migraine with aura and with status migrainosus, not intractable Migraine with aura and with status migrainosus, not intractable : Patient Instructions Indication:Migraine with aura and with status migrainosus, not intractable Night sweats : How to access health information online Indication:Night sweats Night sweats : How to access health information online - Detail Indication:Night sweats Night sweats : Patient Instr uctions Indication:Night sweats Hair loss : Patient Instruct ions Indication:Hair loss Name Dates Details Non-smoker : How to access h ealth information online Indication:Non-smoker Non-smoker : How to access h ealth information online - Detail Indication:Non-smoker Non-smoker : Patient Instruc tions Indication:Non-smoker Cough : How to access health information online Indication:Cough Cough : How to access health information online - Detail Indication:Cough Cough : Patient Instructions Indication:Cough Migraine with aura and with status migrainosus, not intractable : How to access health information online - Detail Indication:Migraine with aura and with status migrainosus, not intractable Migraine with aura and with status migrainosus, not intractable : Patient Instructions Indication:Migraine with aura and with status migrainosus, not intractable Night sweats : How to access health information online Indication:Night sweats Night sweats : How to access health information online - Detail Indication:Night sweats Night sweats : Patient Instr uctions Indication:Night sweats Hair loss : Patient Instruct ions Indication:Hair loss Summary Purpose Family History No Family History Records Found Advance Directives No Advanced Directives Records FoundNo Advanced Directives Records Found Chief Complaint and Reason for Visit Chief Complaint Admit Date EXAMINATION August 01, 2024 1 2:08pm EORDERS November 04, 2024 9:26am Chief Complaint Admit Date EORDERS November 04, 2024 9:26am R LEG/BACK PAIN/UNK INJ/WANTS XRAY December 24, 2024 12:53pm pain December 24, 2024 12:5 9pm Chief Complaint Admit Date EORDERS November 04, 2024 9:26am R LEG/BACK PAIN/UNK INJ/WANTS XRAY December 24, 2024 12:53pm pain December 24, 2024 12:5 9pm 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) December 25, 2024 1:26 pm Reason for Visit Admit Date Low back pain December 24, 2024 12:5 3pm Quadriceps strain December 24, 2024 12:5 3pm Encounter for routine gynecological exam ination December 25, 2024 1:26pm Chief Complaint Admit Date EORDERS November 04, 2024 9:26am R LEG/BACK PAIN/UNK INJ/WANTS XRAY December 24, 2024 12:53pm pain December 24, 2024 12:5 9pm 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 Jc Scales MD Primary Care Provider Acti ve Team Status: Inactive Member Role Status Dates Dr. Jc Scales MD Primary Care Provider Acti ve Start: August 01, 2024 End: August 01, 2024 Dr. Jc Scales MD Attending Provider Active Start: August 01, 2024 End: August 01, 2024 Dr. Jc Scales MD Referring Provider Active Start: August 01, 2024 End: August 01, 2024 Team Status: Inactive Member Role Status Dates Dr. Jc Scales MD Primary Care Provider Acti ve Start: November 04, 2024 End: November 04, 2024 Dr. Jc Scales MD Attending Provider Active Start: November 04, 2024 End: November 04, 2024 Dr. Jc Scales MD Referring Provider Active Start: November 04, 2024 End: November 04, 2024 Team Status: Inactive Member Role Status Dates Dr. Jc Scales MD Primary Care Provider Acti ve Start: December 24, 2024 End: December 24, 2024 Dr. Jc Scales MD Referring Provider Active Start: December 24, 2024 End: December 24, 2024 Earl KENNY PA Attending Provider Active Start: December 24, 2024 End: December 24, 2024 Team Status: Active Member Role Status Dates Dr. Jc Scales MD Primary Care Provider Acti ve Start: December 24, 2024 Earl KENNY PA Attending Provider Active Start: December 24, 2024 Earl KENNY PA Referring Provider Active Start: December 24, 2024 Team Status: Inactive Member Role Status Dates Dr. Jc Scales MD Primary Care Provider Acti ve Start: December 25, 2024 End: December 25, 2024 Dr. Jc Scales MD Referring Provider Active Start: December 25, 2024 End: December 25, 2024 LAM Cooley Attending Provider Active Start: December 25, 2024 End: December 25, 2024 Team Status: Active Member Role/Relationship Status Dates Dr. Jc Scales MD Primary Care Provider Acti ve Team Status: Inactive Member Role/Relationship Status Dates Dr. Jc Scales MD Primary Care Provider Acti ve Start: November 04, 2024 End: November 04, 2024 Dr. Jc Scales MD Attending Provider Active Start: November 04, 2024 End: November 04, 2024 Dr. Jc Scales MD Referring Provider Active Start: November 04, 2024 End: November 04, 2024 Team Status: Inactive Member Role/Relationship Status Dates Dr. Jc Scales MD Primary Care Provider Acti ve Start: December 24, 2024 End: December 24, 2024 Dr. Jc Scales MD Referring Provider Active Start: December 24, 2024 End: December 24, 2024 Earl KENNY PA Attending Provider Active Start: December 24, 2024 End: December 24, 2024 Team Status: Inactive Member Role/Relationship Status Dates Dr. Jc Scales MD Primary Care Provider Acti ve Start: December 24, 2024 End: December 24, 2024 Earl KENNY PA Attending Provider Active Start: December 24, 2024 End: December 24, 2024 Earl KENNY PA Referring Provider Active Start: December 24, 2024 End: December 24, 2024 Team Status: Inactive Member Role/Relationship Status Dates Dr. cJ Scales MD Primary Care Provider Acti ve Start: December 25, 2024 End: December 25, 2024 Dr. Jc Scales MD Referring Provider Active Start: December 25, 2024 End: December 25, 2024 LAM Cooley Attending Provider Active Start: December 25, 2024 End: December 25, 2024 Team Status: Active Member Role/Relationship Status Dates Dr. Jc Scales MD Primary Care Provider Acti ve Start: December 25, 2024 LAM Cooley Attending Provider Active Start: December 25, 2024 LAM Cooley Referring Provider Active Start: December 25, 2024 Team Status: Inactive Member Role/Relationship Status Dates Dr. Jc Scales MD Primary Care Provider Acti ve Start: December 25, 2024 End: December 25, 2024 LAM Cooley Attending Provider Active Start: December 25, 2024 End: December 25, 2024 LAM Cooley Referring Provider Active Start: December 25, 2024 End: December 25, 2024 Team Status: Inactive Member Role/Relationship Status Dates Dr. Jc Scales MD Primary Care Provider Acti ve Start: January 06, 2025 End: January 06, 2025 Jenn Ferrari NP, MANNIE-C Attending Provider Active S tart: January 06, 2025 End: January 06, 2025 Jenn Ferrari NP, NP-Jignesh Referring Provider Active S tart: January 06, 2025 End: January 06, 2025 Goals (unrecognized section and content) Goals may be documented in a n alternate sectionGoals may be documented in an alternate sectionGoals may be documented in an alternate sectionGoals may be documented in an alternate sectionGoals may be documented in an alternate sectionGoals may be documented in an alternate section FOR RECORDS PERTAINING TO PATIENTS WHO ARE OR HAVE BEEN ENROLLED IN A CHEMICAL DEPENDENCY/SUBSTANCEABUSE PROGRAM, SOME INFORMATION MAY BE OMITTED. This clinical summary was aggregated from multiple sources. Caution should be exercised in using it in the provision of clinical care. This summary normalizes information from multiple sources, and as a consequence, information in this document may materially change the coding, format and clinical context of patient data. In addition, data may be omitted in some cases. CLINICAL DECISIONS SHOULD BE BASED ON THE PRIMARY CLINICAL RECORDS. [facility] [employer] provides no warranty or guarantee of the accuracy or completeness of information in this document.
--- NOTE | 2025-01-17 08:10 | MRI_ITS ---
PROCEDURE: SPINE LUMBAR (ROUTINE) 01/17/2025 REASON FOR EXAM: PAIN TECHNIQUE: SPINE LUMBAR (ROUTINE) FINDINGS: Normal lumbar vertebral body height and alignment. The marrow signal is within normal limits. No retroperitoneal abnormality is seen. T12-L1 exhibits a small right paracentral disc bulge without spinal stenosis. Very small annular bulge also present at L1-2 L2-3 and L3-4 are unremarkable. L4-5 and L5-S1 are unremarkable. MRI/Spine Lumbar (Routine) IMPRESSION: Minor disc bulging. No spinal stenosis, nerve root compression or vertebral el dy abnormality Reading [facility]
== END | disposition home or self-care (01) ==
LOC: MRI 07:16
PROVIDERS: PCP Family Medicine; Referring Provider Nurse Practitioner Family; Visit Provider Nurse Practitioner Family
DX: M54.41 Lumbago with sciatica, right side (principal)
CPT/HCPCS: 72148

== ENCOUNTER → 2025-02-04 | Outpatient (CLI) | payer BC, SELFPAY ==
[2025-02-04 18:59] LABS: AST(SGOT) 23 U/L (<=31); Alanine Aminotransfer ALT/SGPT 15 U/L (<=34); Albumin, Serum 4.2 g/dL (3.5-5.0); Alkaline Phosphatase 145 U/L (35-104); Anion Gap 11 (5-15); BUN 15 mg/dL (4-19); BUN/Creat Ratio 20.7 RATIO (10-20); Calcium,Total 9.7 mg/dL (7.6-11.0); Carbon Dioxide 25.3 mmol/L (21.0-32.0); Chloride 104 mmol/L (98-108); Globulin 2.7 g/dL (2.2-4.2); Glucose 82 mg/dL (70-99); Potassium 3.9 mmol/L (3.3-5.1)
== END | disposition home or self-care (01) ==
LOC: MFPLAB 14:16
PROVIDERS: PCP Family Medicine; Referring Provider Family Medicine; Visit Provider Family Medicine
DX: R82.90 Unspecified abnormal findings in urine (principal)
CPT/HCPCS: 36415; 80053; 87077; 87086; 87088